=== PATIENT | male | born 1975 | race Caucasian/White ===

== ENCOUNTER → 2018-07-21 12:24 | Outpatient (CLI) | payer MEDICAID, OTHER, SELFPAY ==
[2016-01-07 09:35] VITALS: BMI 29.2
--- NOTE | 2018-07-21 12:33 | RAD_ITS ---
STUDY: X-RAY - CERVICAL SPINE REASON FOR EXAM: Male, 43 years old. Neck pain with arm numbness TECHNIQUE: 5 view(s) of the cervical spine were obtained. COMPARISON: None FINDINGS: Normal anterior atlantoaxial articulation. Normal odontoid process. Normal cervical lordosis. Normal vertebral bodies and endplates. Normal disc space heights. Normal visualized intervertebral neuroforamina. The soft tissue structures are unremarkable. RAD/Cerv Spine 4 or 5 Views IMPRESSION: Normal x-ray examination of the visualized cervical spine. Electronically Signed: Kyle Jeffries MD at 19:58 EDT Tel , Service support ,
== END ==
PROVIDERS: Family Provider Family Medicine; PCP Family Medicine; Referring Provider Anesthesiology Pain Medicine; Visit Provider Anesthesiology Pain Medicine
DX: M54.2 Cervicalgia (principal)
CPT/HCPCS: 72050

== ENCOUNTER → 2019-08-26 | Outpatient (CLI) | payer MEDICAID, SELFPAY ==
[2016-01-07 09:35] VITALS: BMI 29.2
--- NOTE | 2019-08-26 12:34 | RAD_ITS ---
STUDY: X-RAY - RIGHT ELBOW REASON FOR EXAM: Male, 44 years old. PAIN TECHNIQUE: 3 view(s) of the elbow. COMPARISON: None. FINDINGS: Normal visualized humerus, radius and ulna. Normal radiocapitellar and ulnotrochlear articulations. The soft tissue structures are unremarkable. RAD/Elbow min 3 Views IMPRESSION: Normal x-ray examination of the elbow. Electronically Signed: Adán Lynne, at 14:49 EDT , Service support ,
== END | disposition home or self-care (01) ==
LOC: HPRAD 12:29
PROVIDERS: PCP Family Medicine; Referring Provider Anesthesiology Pain Medicine; Visit Provider Anesthesiology Pain Medicine
DX: M25.521 Pain in right elbow (principal)
CPT/HCPCS: 73080

== ENCOUNTER 2024-09-10 12:08 | Emergency (ER) | payer OTHER, SELFPAY ==
[2024-09-10 12:08] VITALS: BP 148/96; PULSE 98; RESP 14; TEMP 36.2; O2SAT 99; BMI 28.6
--- NOTE | 2024-09-10 12:16 | CT_ITS ---
PROCEDURE: ABDOMEN/PELVIS WITHOUT CONT 09/10/2024 REASON FOR EXAM: KIDNEY STONE TECHNIQUE: ABDOMEN/PELVIS WITHOUT CONT Noncontrast technique limits evaluation of the abdominal and pelvic viscera. Coronal and Sagittal reconstruction series were provided. One or more dose reduction techniques were used (e.g., Automated exposure control, adjustment of the mA and/or kV according to patient size, use of iterative reconstruction technique). FINDINGS: Lung bases: Lung bases are unremarkable The liver, gallbladder, spleen, pancreas and right kidney unremarkable 12 mm right adrenal nodule 4.4 cm left adrenal mass is seen. The right kidney in the left kidney demonstrate no hydroureteronephrosis there is mild fat stranding around the left adrenal mass which appears unrelated to left renal pathology. Bladder: Urinary bladder is unremarkable. Reproductive Organs: Unremarkable Bowel: Normal caliber and appearance. Appendix: No inflammatory process in the right lower quadrant. Lymph nodes: No pathologic Vasculature: 0 normal caliber. Very low plaque burden Peritoneum / Retroperitoneum: No ascites. Bones: No aggressive bone lesion CT/Abdomen/Pelvis without Cont IMPRESSION: Suspicious left adrenal mass and possibly small. MRI abdomen with inphase and out of phase imaging could provide more information about the adrenal lesions Reading [facility]
--- NOTE | 2024-09-10 12:17 | EDS_ITS ---
HPI History of Present Illness Chief Complaint: Flank Pain Informant: patient and spouse/S.O. Narrative Narrative: Nontraumatic left side abdomen pain midnight rating to his flank. Pain would come and go. Nausea and vomiting no hematemesis. No urinary symptoms. No history of kidney stones. Appendectomy in the past. He took Tylenol and Lisa aspirin this morning no relief. States he takes this for his chronic back pain also. No back surgeries. Denies fever chills or sweats. Denies history of gastric ulcers or kidney injury. Normal bowel movements no black or bloody stools. Prior similar symptoms: No PFSH PFSH Medical History (Updated 09/10/24 @ 16:[address] Brody Villa DO) Back pain Home Medications ?Medication ?Instructions ?Recorded ?Last Taken ?Type acetaminophen 500 mg capsule 1,000 mg PO Q6H PRN pain 09/10/24 09/10/24 History aspirin-caffeine 500 mg-32.5 mg 1 tab PO PRN 09/10/24 09/10/24 History tablet (Back and Body Pain Reliever) oxycodone-acetaminophen 5 mg-325 1 tab PO Q6H PRN PRN Pain 3 days 09/10/24 Unknown Rx mg tablet #12 TABLETS Allergy/AdvReac Type Severity Reaction Status Date / Time Penicillins Allergy Unknown Verified 09/10/24 12:09 Surgical History (Updated 09/10/24 @ 12:28 by Siria Kam) History of appendectomy Social History Smoking Status: Current every day smoker tobacco type: cigarettes ROS ROS ED Constitutional Constitutional ED: Denies chills, fever(s) or sweats ENT ENT ED: Denies sore throat Cardiovascular Cardiovascular: Denies chest pain, leg edema, palpitations or racing heartbeat Respiratory/Chest Respiratory/Chest: Denies cough, dyspnea or dyspnea on exertion Gastrointestinal Gastrointestinal: Reports abdominal pain, nausea and vomiting; Denies diarrhea Genitourinary Genitourinary ED: Denies dysuria, hematuria or urinary frequency Musculoskeletal Musculoskeletal: Denies back pain, extremity pain or neck pain Integumentary Denies rash or wounds Neurologic Neurologic: Denies headache(s), paresthesias or weakness EXAM Physical Exam Const Vital Signs: 09/10/24 12:08 09/10/24 16:24 09/10/24 16:25 Temperature 97.2 F L 98.3 F Temperature Source Temporal Pulse Rate 98 79 79 Respiratory Rate 14 17 17 Blood Pressure 148/96 H 136/89 H 136/89 H Blood Pressure Mean 113 104 104 Pulse Ox 99 100 100 Oxygen Delivery Method Room Air Room Air Positive well nourished and well developed General Appearance ED: well developed and NAD HEENT Reports moist mucous membranes normocephalic and atraumatic Eyes General Eye ED: Yes normal appearance of both eyes Neck full ROM Chest Wall Chest: Negative for tenderness Resp normal respiratory effort and normal air movement Effort and Inspection: symmetric chest movement; Negative for respiratory distress Cardio regular rate, regular rhythm and no murmurs Peripheral Pulses: pulses 2+ throughout GI normal to inspection, nondistended, normoactive bowel sounds GI Narrative: Mild tenderness left side abdomen mid axillary area no rash no CVA tenderness. No guarding or rebound. Palpation: Negative for guarding or rebound tenderness present Extremity normal to inspection General Extremety ED: Negative for edema or tenderness General Extremity: Negative for edema Neuro oriented x3 and no sensory deficits noted Sensorium / Orientation: awake and alert Skin no rashes or lesions noted and no wounds MDM MDM MDM Narrative Medical decision making narrative: Interventions / MDM: Differential diagnosis: Left flank pain, left adrenal mass Diagnosis considered but do not suspect: Kidney stone however workup negative. Colitis however CT negative. My EKG interpretation: N/A Imaging independently reviewed and interpreted by myself: CT abdomen pelvis: 4.4 cm left adrenal mass, 12 mm right adrenal nodule, no renal stones noted. External documents reviewed: N/A Test considered but not ordered:N/A ED course: Patient presented renal colic symptoms pain causing nausea and vomiting. Left side pain rating to his back. Renal stone protocol initiated. IV established for labs, urine ordered. Fluids, Zofran, Toradol, morphine. CT abdomen pelvis for further evaluation. 1510: Pain more controlled this time on workup and white count 17. Urine negative for infection. Normal creatinine 0.88. Lipase LFTs normal. CT scan without kidney stones or obstructive process. However incidentally notes a 4.4 cm left adrenal mass, 12 mm right adrenal nodule. No cancer history. No inspected weight loss. This mass is on the left side likely explaining patient's pain. He is followed by Dr. Osborn in the past, I will reach out to discuss close outpatient follow-up for further outpatient workup. Reach out to transfer line with nursing service. He has not seen his PCP in over 3 years. They discussed with the patient his insurance is not in network. Therefore he is given information to follow-up with [facility] to call on Thursday. He is given a short prescription for pain control. All questions were answered. Re-evaluation: stable Disposition discussed with patient/family/significant other: Patient and significant other Case discussed with consulting clinician: N/A This note was generated with [employer] dictation software. It may contain incorrect words, spelling, and punctuation that were not noted in checking the note before signing. Lab Data Attestation: I reviewed the patient's lab results. Labs: Laboratory Results - last 24 hr 09/10/24 09/10/24 12:22 14:30 WBC 17.7 H RBC 5.53 Hgb 16.0 Hct 46.0 MCV 83.2 MCH 28.9 MCHC 34.8 RDW Std Deviation 42.5 RDW Coeff of Shahbaz 13.8 Plt Count 369 MPV 8.5 Immature Gran % (Auto) 0.700 Neut % (Auto) 80.6 H Lymph % (Auto) 12.7 L Swisher % (Auto) 5.7 Eos % (Auto) 0.0 Baso % (Auto) 0.3 Absolute Neuts (auto) 14.2 H Absolute Lymphs (auto) 2.25 Nucleated RBC % 0 Sodium 137 Potassium 3.9 Chloride 99 Carbon Dioxide 24.0 Anion Gap 14 BUN 16 Creatinine 0.88 Estim Creat Clear Calc 111.54 Est GFR (MDRD) Non-Af 106 BUN/Creatinine Ratio 18.2 Glucose 132 H Calcium 9.8 Total Bilirubin 0.75 Direct Bilirubin 0.21 AST 21 ALT 23 Alkaline Phosphatase 80 Total Protein 8.0 Albumin 4.6 Globulin 3.4 Lipase 21 Urine Color Yellow Urine Clarity Clear Urine pH 6.0 Ur Specific [place] 1.020 Urine Protein 30 H Urine Glucose (UA) Normal Urine Ketones Negative Urine Occult Blood 25 H Urine Nitrite Negative Urine Bilirubin Negative Urine Urobilinogen Normal Ur Leukocyte Esterase Negative Urine RBC 0-5 SEEN Urine WBC 0 SEEN Ur Squamous Epith Cells 0 SEEN Urine Bacteria 0 SEEN Urine Mucus 0 SEEN Radiography Diagnostic Testing: Clinical Impression(s) from Imaging Studies Abdomen/Pelvis CT 06/21/25 12:16 IMPRESSION: Suspicious left adrenal mass and possibly small. MRI abdomen with inphase and out of phase imaging could provide more information about the adrenal lesions Reading [facility] Discharge Plan Triage Chief Complaint: Flank Pain ED Provider: Brody Villa Dx/Rx/DC Orders Clinical Impression: Adrenal mass, left, Left flank pain Instructions: ED Flank Pain, Uncertain Cause Prescriptions: New oxycodone-acetaminophen 5-325 mg tablet 1 tab PO Q6H PRN PRN (Reason: Pain) 3 Days Qty: 12 0RF No Action acetaminophen 500 mg capsule 1,000 mg PO Q6H PRN (Reason: pain) Back and Body Pain Reliever 500-32.5 mg tablet 1 tab PO PRN Primary Care Provider: Care Physician,No Primary Referrals: Torsten Osborn MD [Non-Staff] - Arin Roa [facility], DO [[facility]] - 2 Days Activity Restrictions/Additional Instructions: Your workup negative for kidney stones however notes a 4.4 cm left adrenal mass. This likely explaining your pain. Attempted to reach out to [facility], unfortunately currently your insurance is not accepted through them. Please call we will start from clinic on Thursday for outpatient follow-up and further testing as needed. Take pain medicines as needed. Print Language: Azeri Disposition Disposition: Home, Self Care Discharge Date/Time: 09/10/24 16:25
[2024-09-10] MEDS: Ondansetron 4 MG/2 ML Vial IV (12:24)
[2024-09-10] MEDS: Ketorolac 15 MG/ML Vial IV (12:24)
[2024-09-10] MEDS: 0.9% Normal Saline (1000mL) 1,000 ML 999 ML IV (12:24)
[2024-09-10] MEDS: Morphine 4 MG/ML Syringe IV (12:25)
[2024-09-10 12:31] LABS: Absolute Lymphocyte Count 2.25 X10^3/uL (0.83-4.51); Absolute Neutrophil Count 14.2 X10^3/uL (2.0-7.7); Basophil# 0.06 X10^3/uL; Basophil% 0.3 % (0-1); Lymphocyte # 2.25 X10^3/ul (0.83-4.51); Lymphocyte % 12.7 % (19-41); Mean Corp Hgb Conc 34.8 g/dL (32-36); Mean Corpuscular Hgb 28.9 pg (27.0-32.0); Mean Corpuscular Volume 83.2 fL (80-94); Mean Platelet Vol. 8.5 fl (6.2-12.0); Monocyte# 1.01 X10^3/uL; Monocyte% 5.7 % (0-10); NRBC Flagged by Analyzer 0 % (0-5); Neutrophil # 14.23 X10^3/uL (2.7-7.7); Neutrophil % 80.6 % (47-70); Platelet Count 369 K/mm3 (150-450); RBC Distribution Width CV 13.8 % (11.6-14.6); RBC Distribution Width SD 42.5 fl (35.1-43.9); Red Blood Count 5.53 M/mm3 (4.6-6.2); White Blood Count 17.7 K/mm3 (4.4-11.0)
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
[2024-09-10 12:50] LABS: Anion Gap 14 (5-15); BUN 16 mg/dL (4-19); BUN/Creat Ratio 18.2 RATIO (10-20); Calcium,Total 9.8 mg/dL (7.6-11.0); Chloride 99 mmol/L (98-108); Creatinine, Serum 0.88 mg/dL (0.70-1.20); EST Glomerular Filtration Rate 106 (>60); Estimated Creatinine Clearance 111.54 ml/min (50-250); Glucose 132 mg/dL (70-99); Potassium 3.9 mmol/L (3.3-5.1); Sodium Level 137 mmol/L (133-145)
[2024-09-10 13:41] LABS: AST(SGOT) 21 U/L (<=37); Alanine Aminotransfer ALT/SGPT 23 U/L (<=46); Albumin, Serum 4.6 g/dL (3.5-5.0); Alkaline Phosphatase 80 U/L (40-129); Bilirubin, Direct 0.21 mg/dL (0.00-0.30); Globulin 3.4 g/dL (2.2-4.2); Lipase 21 U/L (13-75); Total Bilirubin 0.75 mg/dL (0.00-1.30)
[2024-09-10 14:44] LABS: Bacteria 0 SEEN /hpf (None Seen); Mucous, Urine 0 SEEN /hpf (<or=2+); Squamous Epithelial Cells - UA 0 SEEN /hpf (0-5)
[2024-09-10 14:46] LABS: Color, Urine Yellow (Yellow); Glucose, Dipstick Normal (Normal); Ketone-Dipstick Negative (Negative); Leukocyte Esterase-Dipstick Negative /ul (Negative); Nitrite-Dipstick Negative (Negative); Occult Blood-Urine 25 /ul (Negative); Protein-Dipstick 30 mg/dl (Negative); Urine Bilirubin Dipstick Negative (Negative); Urine Clarity Clear (Clear); Urine Urobilinogen Normal (Normal)
[2024-09-10 14:52] LABS: Red Blood Cells-Urine 0-5 SEEN /hpf (0-5)
[2024-09-10 14:53] LABS: White Blood Cells 0 SEEN /hpf (0-5)
[2024-09-10 16:24] VITALS: BP 136/89; PULSE 79; RESP 17; O2SAT 100
[2024-09-10 16:25] VITALS: BP 136/89; PULSE 79; RESP 17; TEMP 36.8; O2SAT 100
== END 2024-09-10 16:25 | disposition home or self-care (01) ==
PROVIDERS: Emergency Provider Emergency Medicine; Visit Provider Emergency Medicine
DX: E27.8 Other specified disorders of adrenal gland (principal); G89.29 Other chronic pain; M54.9 Dorsalgia, unspecified; Z90.49 Acquired absence of other specified parts of digestive tract; Z79.82 Long term (current) use of aspirin; F17.210 Nicotine dependence, cigarettes, uncomplicated
CPT/HCPCS: 74176; 80048; 80076; 81001; 83690; 85025; 96361; 96374; 96375; 99283; A4216; J2405

== ENCOUNTER → 2024-09-30 | Outpatient (CLI) | payer OTHER, SELFPAY ==
--- NOTE | 2024-09-30 07:57 | MRI_ITS ---
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 IV contrast: 10 mL Clariscan COMPARISON: 09/10/2024 FINDINGS: Variable overall very mild motion limitation. Note some abdominal viscera are excluded from the field of view as the exam was optimized for evaluation of the adrenals. Diffusion was not performed. Lung bases: 15 x 12 mm LEFT lower lobe nodule. Liver: Punctate subcapsular probable cyst in the anterior RIGHT lobe. Extremely faintly T2 bright and T1 isointense lesion in the central inferior RIGHT lobe measures 26 x 29 mm demonstrates homogeneous arterial phase hyperenhancement, fading to background signal intensity on more delayed postcontrast imaging. Spleen: Unremarkable. Gallbladder: Suspect adenomyosis along the fundus with nodular area of soft tissue thickening and cystic changes measuring 13 x 11 mm.. Pancreas: Unremarkable. Adrenals: Heterogeneously T1 and T2 bright LEFT renal mass measures 4.1 x 3.9 x 4.1 cm and appears centrally mostly centrally nonenhancing however with areas of peripheral wall thickening and suspected hypoenhancement up to 10 mm on subtraction imaging although there is some limitation related to motion. No definite macroscopic or intracellular fat identified. Mild surrounding stranding is nonspecific and may be related to hemorrhage. Kidneys: Trace nonspecific symmetric perinephric stranding. Bowel: Not well evaluated by MRI; better evaluated previously. No gross bowel dilatation. Diverticulosis. Lymph nodes: Unremarkable. Vasculature: Mild atherosclerosis. Peritoneum: Unremarkable. Bones: Grossly unremarkable on nondedicated evaluation. MRI/MRI Abd WITH and W/O Contrast IMPRESSION: 1. 4.1 cm hemorrhagic LEFT adrenal mass remains indeterminate by MRI and theref ore warrants clinical follow-up such as PET/CT or tissue sampling. Note that the majority of the lesion centrally appears nonenh ancing, likely reflecting blood products. Tissue sampling thus carries a risk of false negative/nondiagnostic results and should target peripheral elements to minimize this possibility, if performed. Correlation with medical history and any available more remote outside imaging may also be helpful. Mild surrounding stranding is nonspecific and may be reactive to hemorrhage. 2. Indeterminate 15 mm pulmonary nodule not well evaluated by MRI. This warran follow-up CT chest in 3 months, PET-CT, or tissue sampling per the Fleischner recommendations for pulmonary nodule follow- up, presuming no history of known malignancy or immunosuppression. Additionally recommend more prompt CT chest to better estab xavi a baseline and evaluate for possible additional nodules. 3. 29 mm hypervascular hepatic lesion is suboptimally characterized given the p rotocol is optimized for evaluation of the adrenals but may reflect FNH. Recommend either close attention on follow-up im aging to ensure stability versus more definitive characterization with multiphase hepatic protocol MRI with Eovist IV contrast. 4. Suspect 13 mm nodular appearance of adenomyosis along the gallbladder fundus . Recommend confirmation with ultrasound as this has a pathognomonic sonographic appearance. 5. Additional description as above. Reading Location: [id number]
== END | disposition home or self-care (01) ==
LOC: MRI 07:54
DX: D44.10 Neoplasm of uncertain behavior of unspecified adrenal gland (principal)
CPT/HCPCS: 74183; A9575; A4216

== ENCOUNTER → 2024-10-07 | Outpatient (CLI) | payer OTHER, SELFPAY ==
[2024-10-07 10:45] LABS: Hematocrit 41.5 % (40-54); Hemoglobin 14.3 g/dL (13.0-16.5); Mean Corp Hgb Conc 34.5 g/dL (32-36); Mean Corpuscular Volume 84.3 fL (80-94); Mean Platelet Vol. 8.7 fl (6.2-12.0); Platelet Count 290 K/mm3 (150-450); RBC Distribution Width CV 13.6 % (11.6-14.6); RBC Distribution Width SD 42.2 fl (35.1-43.9); Red Blood Count 4.92 M/mm3 (4.6-6.2); White Blood Count 10.0 K/mm3 (4.4-11.0)
[2024-10-07 10:58] LABS: Color, Urine Yellow (Yellow); Glucose, Dipstick Normal (Normal); Ketone-Dipstick Negative (Negative); Leukocyte Esterase-Dipstick Negative /ul (Negative); Nitrite-Dipstick Negative (Negative); Occult Blood-Urine Negative /ul (Negative); Protein-Dipstick 15 mg/dl (Negative); Specific Gravity, Urine 1.020 (1.002-1.030); Urine Bilirubin Dipstick Negative (Negative)
[2024-10-07 11:25] LABS: AST(SGOT) 17 U/L (<=37); Alanine Aminotransfer ALT/SGPT 23 U/L (<=46); Albumin, Serum 4.3 g/dL (3.5-5.0); Alkaline Phosphatase 71 U/L (40-129); Anion Gap 10 (5-15); BUN 19 mg/dL (4-19); BUN/Creat Ratio 18.3 RATIO (10-20); Calcium,Total 9.4 mg/dL (7.6-11.0); Carbon Dioxide 24.4 mmol/L (21.0-32.0); Chloride 104 mmol/L (98-108); Globulin 2.7 g/dL (2.2-4.2); Glucose 103 mg/dL (70-99); Potassium 4.2 mmol/L (3.3-5.1)
== END | disposition home or self-care (01) ==
LOC: LAB 10:01
DX: Z13.1 Encounter for screening for diabetes mellitus (principal); R10.9 Unspecified abdominal pain
CPT/HCPCS: 36415; 80053; 81002; 83036; 85027

== ENCOUNTER → 2024-11-05 | Outpatient (CLI) | payer OTHER, SELFPAY ==
--- NOTE | 2024-11-05 10:25 | US_ITS ---
PROCEDURE: ABDOMEN LIMITED 11/05/2024 REASON FOR EXAM: GALLBLADDER DISEASE TECHNIQUE: ABDOMEN LIMITED COMPARISON: 09/30/2024 MRI was reviewed FINDINGS: Liver is mildly enlarged and measures 17.2 cm. It shows normal echogenicity. On the current study no definite focal lesions. Normal bile ducts. Normal color flow. Portal vein is patent with hepatopetal flow. Gallbladder measures 8.1 cm. No definite stones. Negative Martini's sign. No pericholecystic fluid. No obvious wall thickening. Wall measures 2 mm. CBD measures 3 mm. The pancreas is heterogenous. No definite lesions. Right kidney measures 11.3 x 5.9 x 5.4 cm. Cortex measures 1.4 cm. No hydronephrosis. No stones. No mass. 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 No obvious abnormalities on the current study. Further evaluation is advised a s clinically warranted Reading Location[facility] [address]
--- OUTSIDE RECORDS SUMMARY | 2024-11-05 10:37 | XMS RPT_ITS | CCD ---
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 Brody Villa DO Emergency Provider Care Physician, No Primary Primary Care Provider Unavailable Unavailable Primary Care Provider Unavailabl e Beam PATROL GUARD, Zebulun Unavailable Dr. Brody Villa DO Attending Provider [phone] Beam PATROL GUARD-C, Zebulun Primary Care Provider Beam PATROL GUARD-C, Zebulun Attending Provider Beam PATROL GUARD-C, Zebulun Referring Provider Brody Villa Attending Unavailable Care Physician, No Primary Primary Care Unava ilable Beam VSC, Zebulun Primary Care Unavailable Jacquelyn Hightower Attending Unavailable Jacquelyn Hightower Referring Unavailable Beam VSC, Zebulun Primary Care Unavailable Jacquelyn Hightower Attending Unavailable Geronimohohui Jacquelyn Referring Unavailable Beam VSC, Zebulun Primary Care Unavailable Beam VSC, Zebulun Attending Unavailable Beam VSC, Zebulun Referring Unavailable Beam VSC, Zebulun Primary Care Unavailable Beam VSC, Zebulun Attending Unavailable Allergies Allergy Classification Reported Allergen(s) Allergy Type Date of Onset Reaction(s) Facility (3 sources) Penicillins Allergy to substance 5 Unknown [facility] (2 sources) Aspirin Drug Allergy 3 Other: See Comments [facility] (2 sources) Penicillins Propensity to adverse reactions to drug 3 Other: See Comments [facility] (2 sources) SUMAtriptan Drug Allergy 4 GI Upset [facility] (1 source) Penicillins Drug allergy (disorder) 5 [facility] Repository Medications Current Medications Medication Drug Class(es) Dates Sig (Normalized) Sig (Original) acetaminophen 500 mg oral capsule (3 sources) Start: 09-10-2024 take 2 capsules by mouth every six hours as needed for pain Acetaminophen 500 mg capsule Active 1000 mg PO EVERY 6 HOURS as needed for pain September 10, 2024 12:00am acetaminophen 325 mg / oxyCODONE hydrochloride 5 mg oral tablet (3 sources) Opioid Agonist Start: 09-10-2024 take 1 tablet by mouth every six hours as needed for pain Oxycodone-Acetamino phen 5-325 mg tablet Active 1 {tbl} PO EVERY 6 HOURS NEEDED as needed for Pain 12 3 0 September 10, 2024 Mass of left adrenal gland Other specified disorders of adrenal gland aspirin 500 mg / caffeine 32.5 mg oral tablet (3 sources) Platelet Aggregation Inhibitor, Nonsteroidal Anti-inflammatory Drug, Central Nervous System Stimulant, Methylxanthine Start: 09-10-2024 Aspirin-Caffeine (Back And Body Pain Reliever) 500-32.5 mg tablet Active 1 {tbl} PO NEEDED September 10, 2024 12:00am cyclobenzaprine hydrochloride 10 mg oral tablet (5 sources) Muscle Relaxant Start: 11-18-2016 take 1 tablet by mouth every eight hours as needed cyclobenzaprine (FLEXERIL) 10 mg tablet Take 1 tablet by mouth three times daily as needed for Muscle Spasm. 0 11/18/2016 Active Start: 01-03-2016 End: 09-10-2024 take 1 tablet by mouth twice daily as needed for muscle spasms Cyclobenzaprine 10 MG tablet Discontinued 10 mg PO TWICE DAILY NEEDED as needed for Spasms January 03, 2016 12:00am September 10, 2024 12:29pm gabapentin 600 mg oral tablet (2 sources) Anti-epileptic Agent take 1 tablet by mouth three times daily gabapentin (NEURONTIN) 600 mg tablet Take 600 mg by mouth three times daily. Active meloxicam 15 mg oral tablet (2 sources) Nonsteroidal Anti-inflammatory Drug Start: 10-19-19 take 1 tablet by mouth once daily at mealtime meloxicam (MOBIC) 15 mg tablet Indications: Headache, unspecified headache type , Neck pain Take 1 tablet by mouth once daily. With food. 30 tablet 10/18/2020 Active tiZANidine 4 mg oral tablet (2 sources) Central alpha-2 Adrenergic Agonist Start: 10-19-19 take 1 tablet by mouth three times daily as needed for muscle spasms tiZANidine (ZANAFLEX) 4 mg tablet Indications: Headache, unspecified headache type , Neck pain Take 1 tablet by mouth three times daily as needed (muscle spasms). 30 tablet 1 10/18/2020 Active Completed/Discontinued Medications Medication Drug Class(es) Dates Sig (Normalized) Sig (Original) aspirin 500 mg / diphenhydrAMINE citrate 38.3 mg oral tablet (3 sources) Platelet Aggregation Inhibitor, Histamine-1 Receptor Antagonist, Nonsteroidal Anti-inflammatory Drug Start: 01-03-2016 End: 09-10-2024 take 1 tablet by mouth three times daily in the evening Aspirin-Diphenhyd ramine Citrat (Lisa Pm Caplet) 1 EACH tablet Discontinued 500 NMA PO THREE TIMES A DAY January 03, 2016 12:00am September 10, 2024 12:30pm etodolac 300 mg oral capsule (3 sources) Nonsteroidal Anti-inflammatory Drug Start: 11-07-2014 End: 09-10-2024 take 1 capsule by mouth three times daily at mealtime Etodolac 300 MG capsule Discontinued 300 mg PO 3 TIMES DAILY WITH MEALS 30 0 November 07, 2014 12:00am September 10, 2024 12:29pm with food omeprazole 40 mg delayed release oral capsule (3 sources) Proton Pump Inhibitor Start: 01-03-2016 End: 09-10-2024 Omeprazole (Prilosec) 40 MG capsule Discontinued 40 mg PO NEEDED as needed for Indigestion January 03, 2016 12:00am September 10, 2024 12:29pm Problems Active Problems Problem Classification Problem Date Documented Da te Episodic/Chronic Abdominal pain (4 sources) Left flank pain; Translations: [Unspecified abdominal pain] Onset: 5 09-10-2024 Episodic Biliary tract disease (1 source) Other specified diseases of gallbladder; Translations: [Other specified diseases of gallbladder] Onset: 5 Episodic Diseases of white blood cells (2 sources) Leukocytosis; Translations: [Elevated white blood cell count, unspecified] Onset: 7 11-24-2016 Chronic Disorders of lipid metabolism (2 sources) Mixed hyperlipidemia; Translations: [Mixed hyperlipidemia] Onset: 7 09-08-2016 Chronic Esophageal disorders (2 sources) Gastroesophageal reflux disease without esophagitis; Translations: [Gastro-esophageal reflux disease without esophagitis] Onset: 7 11-18-2016 Chronic Essential hypertension (2 sources) Essential hypertension; Translations: [Essential (primary) hypertension] Onset: 7 11-18-2016 Chronic Headache; including migraine (2 sources) Migraine; Translations: [Migraine, unspecified, not intractable, without status migrainosus] 07-28-2014 Chronic Neoplasms of unspecified nature or uncertain behavior (1 source) 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; Translations: [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] Onset: 5 Episodic Osteoarthritis (2 sources) Arthritis of hip; Translations: [Unilateral primary osteoarthritis, unspecified hip] Onset: 5 02-23-2017 Chronic Other endocrine disorders (4 sources) Adrenal mass; Translations: [Other specified disorders of adrenal gland] 09-10-2024 Chronic Other gastrointestinal disorders (1 source) Adrenal mass 09-22-2024 Episodic Other lower respiratory disease (1 source) Solitary pulmonary nodule; Translations: [Solitary pulmonary nodule] Onset: 5 Episodic Other nervous system disorders (2 sources) Chronic pain syndrome; Translations: [Chronic pain syndrome] Onset: 8 04-02-2017 Chronic Other screening for suspected conditions (not mental disorders or infectious disease) (1 source) Encounter for screening for diabetes mellitus; Translations: [Encounter for screening for diabetes mellitus] Onset: 5 Episodic Spondylosis; intervertebral disc disorders; other back problems (2 sources) Prolapsed lumbar intervertebral disc; Translations: [Other intervertebral disc displacement, lumbar region] Onset: 5 11-18-2016 Chronic Substance-related disorders (2 sources) Cigarette smoker ; Translations: [Nicotine dependence, cigarettes, uncomplicated] Onset: 5 11-18-2016 Chronic Past or Other Problems Problem Classification Problem Date Documented Date Episodic/Chronic Headache; including migraine (2 sources) Headache; Translations: [Headache, unspecified headache type] Onset: 11-07-2020 11-07-2020 Episodic Other acquired deformities (2 sources) Other specified acquired deformities of right thigh; Translations: [Other acquired deformities of hip] Onset: 07-28-2014 02-23-2017 Episodic Other aftercare (2 sources) Drug therapy finding; Translations: [Other snf (current) drug therapy] Onset: 11-18-2016 11-18-2016 Episodic Other connective tissue disease (2 sources) Muscle weakness of limb; Translations: [Other symptoms and signs involving the musculoskeletal system] Onset: 11-30-2014 11-30-2014 Episodic Other nervous system disorders (2 sources) Abnormal reflex; Translations: [Abnormal reflex] Onset: 11-30-2014 11-30-2014 Episodic Other non-traumatic joint disorders (2 sources) Arthralgia of the pelvic region and thigh; Translations: [Pain in unspecified hip] Onset: 09-04-2014 09-04-2014 Episodic Spondylosis; intervertebral disc disorders; other back problems (6 sources) Low back pain; Translations: [Lumbago] Onset: 09-04-2014 02-23-2017 Episodic Results Test Name Value Interpretation Reference Range Facility Anion gap in Serum or Plasma Ordered By: Carolyn Phelps on 10-07-2024 Anion gap [Moles/Vol] 10 mmol/L 08-04 [facility] BUN/creatinine ratioOrdered By: yumiko Phelps on 10-07-2024 Urea nitrogen/Creatinine [Mass ratio] 18.3 mg/mg 01-09 [facility] Bilirubin Test strip Ql (U)O rdered By: Carolyn Phelps on 10-07-2024 Bilirubin Ql (U) Negative Negative [facility] Bilirubin, totalOrdered By: [facility] on 10-07-2024 Bilirubin [Mass/Vol] 0.59 mg/dL 0.00-1.30 [facility] CBC-Complete Blood Cnt No Di ffon 10-07-2024 Erythrocyte distribution width (RBC) [Ratio] 13.6 % Normal 11.6-14.6 [facility] Comment on above: Performed By: #### L [id number], L100.0500, L400.2010, L500.4050 #### [facility] [address] [place], [address] Hematocrit (Bld) [Volume fraction] 41.5 % Normal 40-54 [facility] Comment on above: Performed By: #### L [id number], L100.0500, L4, L500.4050 #### [facility] [address] [place], [address] Hemoglobin (Bld) [Mass/Vol] 14.3 g/dL Normal 13.0-16.5 [facility] Comment on above: Performed By: #### L [id number], L100.0500, L4, L500.4050 #### [facility] [address] [place], [address] MCH (RBC) [Entitic mass] 29.1 pg Normal 27.0-32.0 [facility] Comment on above: Performed By: #### L [id number], L100.0500, L4, L500.4050 #### [facility] [address] [place], [address] MCHC (RBC) [Mass/Vol] 34.5 g/dL Normal 32-36 [facility] Comment on above: Performed By: #### L [id number], L100.0500, L4, L500.4050 #### [facility] [address] [place], [address] MCV (RBC) [Entitic vol] 84.3 fL Normal 80-94 [facility] Comment on above: Performed By: #### L [id number], L100.0500, L4, L500.4050 #### [facility] [address] [place], [address] Platelet mean volume (Bld) [Entitic vol] 8.7 fL Normal 6.2-12.0 [facility] Comment on above: Performed By: #### L [id number], L100.0500, L4, L500.4050 #### [facility] [address] [place], [address] Platelets (Bld) [#/Vol] 290 10*3/uL Normal 150-450 [facility] Comment on above: Performed By: #### L [id number], L100.0500, L400.2010, L500.4050 #### [facility] [address] [place], [address] RBC (Bld) [#/Vol] 4.92 10*6/uL Normal 4.6-6.2 [facility] Comment on above: Performed By: #### L [id number], L100.0500, L400.2010, L500.4050 #### [facility] [address] [place], [address] RDW SD 42.2 fl Normal 35.1-43.9 [facility] Comment on above: Performed By: #### L [id number], L100.0500, L4.2010, L500.4050 #### [facility] [address] [place], [address] WBC (Bld) [#/Vol] 10.0 10*3/uL Normal 4.4-11.0 [facility] Comment on above: Performed By: #### L [id number], L100.0500, L400.2010, L500.4050 #### [facility] [address] [place], [address] Carbon dioxide, total [Moles /volume] in Central venous bloodOrdered By: Carolyn Phelps on 10-07-2024 CO2 [Moles/Vol] 24.4 mmol/L 21.0-32.0 [facility] Chloride assayOrdered By: Truong Phelps on 10-07-2024 Chloride [Moles/Vol] 104 mmol/L 98-108 [facility] Comprehensive Metabolic Prof ilon 10-07-2024 Albumin [Mass/Vol] 4.3 g/dL Normal 3.5-5.0 [facility] Comment on above: Performed By: #### L 100.0100, L500.2500 #### [facility] [address] [place], [address] Albumin/Globulin [Mass ratio] 1.6 {ratio} Normal 0.9-2.4 [facility] Comment on above: Performed By: #### L 100.0100, L500.2500 #### [facility] [address] [place], [address] ALK PHOS 71 U/L Normal 40-129 [facility] Comment on above: Performed By: #### L 100.0100, L500.2500 #### [facility] [address] [place], [address] ALT [Catalytic activity/Vol] 23 U/L Normal <=46 [facility] Comment on above: Performed By: #### L 100.0100, L500.2500 #### [facility] [address] [place], [address] AST [Catalytic activity/Vol] 17 U/L Normal <=37 [facility] Comment on above: Performed By: #### L 100.0100, L500.2500 #### [facility] [address] [place], [address] Bilirubin [Mass/Vol] 0.59 mg/dL Normal 0.00-1.30 [facility] Comment on above: Performed By: #### L 100.0100, L500.2500 #### [facility] [address] [place], [address] BUN/CRE 18.3 RATIO Normal 10-20 [facility] Comment on above: Performed By: #### L 100.0100, L500.2500 #### [facility] [address] [place], [address] Calcium [Mass/Vol] 9.4 mg/dL Normal 7.6-11.0 [facility] Comment on above: Performed By: #### L 100.0100, L500.2500 #### [facility] [address] [place], [address] Chloride [Moles/Vol] 104 mmol/L Normal 98-108 [facility] Comment on above: Performed By: #### L 100.0100, L500.2500 #### [facility] [address] [place], [address] CO2 [Moles/Vol] 24.4 mmol/L Normal 21.0-32.0 [facility] Comment on above: Performed By: #### L 100.0100, L500.2500 #### [facility] [address] [place], [address] Creatinine [Mass/Vol] 1.03 mg/dL Normal 0.70-1.20 [facility] Comment on above: Performed By: #### L 100.0100, L500.2500 #### [facility] [address] [place], [address] GAP 10 Normal 5-15 [facility] Comment on above: Performed By: #### L 100.0100, L500.2500 #### [facility] [address] [place], [address] GFR/1.73 sq M.predicted among non-blacks MDRD (S/P/Bld) [Vol rate/Area] 89 mL/min/{1.73_m2} Normal >60 [facility] Comment on above: Result Comment: mL/m in/1.73m2 CKD-EPI Creatinine Equation (2020) Performed By: #### L 100.0100, L500.2500 #### [facility] [address] [place], [address] Globulin (S) [Mass/Vol] 2.7 g/dL Normal 2.2-4.2 [facility] Comment on above: Performed By: #### L 100.0100, L500.2500 #### [facility] [address] [place], [address] Glucose [Mass/Vol] 103 mg/dL High 70-99 [facility] Comment on above: Performed By: #### L 100.0100, L500.2500 #### [facility] [address] [place], [address] Potassium [Moles/Vol] 4.2 mmol/L Normal 3.3-5.1 [facility] Comment on above: Performed By: #### L 100.0100, L500.2500 #### [facility] [address] [place], [address] Sodium [Moles/Vol] 139 mmol/L Normal 133-145 [facility] Comment on above: Performed By: #### L 100.0100, L500.2500 #### [facility] [address] [place], [address] T PROT 7.0 g/dL Normal 5.9-8.4 [facility] Comment on above: Performed By: #### L 100.0100, L500.2500 #### [facility] [address] [place], [address] Urea nitrogen [Mass/Vol] 19 mg/dL Normal 4-19 [facility] Comment on above: Performed By: #### L 100.0100, L500.2500 #### [facility] [address] [place], [address] Erythrocyte distribution wid th ratioOrdered By: Zebulun Beam on 10-07-2024 Erythrocyte distribution width (RBC) [Ratio] 13.6 % 11.6-14.6 [facility] Erythrocyte distribution wid th standard deviationOrdered By: Zebulun Beam on 10-07-2024 Erythrocyte distribution width (RBC) [Ratio] 42.2 fl 35.1-43.9 [facility] Glomerular filtration rate ( GFR) estimation/1.73 sq m using serum, plasma, or whole bOrdered By: Carolyn Phelps on 10-07-2024 GFR/1.73 sq M.predicted among non-blacks MDRD (S/P/Bld) [Vol rate/Area] 89 mL/min/{1.73_m2} >60 [facility] Comment on above: mL/min/1.73m2 CKD-EP I Creatinine Equation (2020) Hematocrit Auto (Bld) [Volum e fraction]Ordered By: Carolyn Phelps on 10-07-2024 Hematocrit (Bld) [Volume fraction] 41.5 % 40-54 [facility] Hemoglobin A1con 10-07-2024 HbA1c (Bld) [Mass fraction] 5.9 % High <=5.6 [facility] Comment on above: Result Comment: Norm al < 5.7 % Prediabetic 5.7 - 6.4 % Diabetic >or= 6.5 % Please note range changes. Performed By: #### L 100.0100, L500.2500 #### [facility] [address] [place], [place] [address]all [facility] [place], [address] Hemoglobin A1c percentageOrd ered By: Carolyn Phelps on 10-07-2024 HbA1c (Bld) [Mass fraction] 5.9 % High <5.7 [facility] Comment on above: Normal < 5.7 % Predi abetic 5.7 - 6.4 % Diabetic >or= 6.5 % Please note range changes. Hemoglobin measurementOrdere d By: Carolyn Phelps on 10-07-2024 Hemoglobin (Bld) [Mass/Vol] 14.3 g/dL 13.0-16.5 [facility] Ketones Test strip Ql (U)Ord ered By: [facility] Phelps on 10-07-2024 Ketones Ql (U) Negative Negative [facility] - Chemistry and C hemistry - challengeOrdered By: Carolyn Phelps on 10-07-2024 AST [Catalytic activity/Vol] 17 U/L <38 [facility] MCV (mean corpuscular volume ) determinationOrdered By: Carolyn Phelps on 10-07-2024 MCV (RBC) [Entitic vol] 84.3 fL 80-94 [facility] Mean corpuscular hemoglobin (MCH) determinationOrdered By: Ricardon Mattie on 10-07-2024 MCH (RBC) [Entitic mass] 29.1 pg 27.0-32.0 [facility] Mean corpuscular hemoglobin concentration (MCHC) determinationOrdered By: Oswaldolun Beam on 10-07-2024 MCHC (RBC) [Mass/Vol] 34.5 g/dL 32-36 [facility] Mean platelet volume determi nationOrdered By: Zeauralun Beam on 10-07-2024 Platelet mean volume (Bld) [Entitic vol] 8.7 fL 6.2-12.0 [facility] Nitrite Test strip Ql (U)Ord ered By: Carolyn Beam on 10-07-2024 Nitrite Ql (U) Negative Negative [facility] Platelet countOrdered By: Truong Phelps on 10-07-2024 Platelets (Bld) [#/Vol] 290 10*3/uL 150-450 [facility] Potassium measurement (mass/ volume)Ordered By: Carolyn Phelps on 10-07-2024 Potassium (Unsp spec) [Mass/Vol] 4.2 mmol/L 3.3-5.1 [facility] Protein Test strip Ql (U)Ord ered By: Carolyn Phelps on 10-07-2024 Protein Ql (U) 15 mg/dl High Negative [facility] RBC Auto (Bld) [#/Vol]Ordere d By: Carolyn Beam on 10-07-2024 RBC (Bld) [#/Vol] 4.92 10*6/uL 4.6-6.2 [facility] Serum creatinine measurement (mass/volume)Ordered By: Carolyn Phelps on 10-07-2024 Creatinine [Mass/Vol] 1.03 mg/dL 0.70-1.20 [facility] Serum globulin measurementOr dered By: Carolyn Phelps on 10-07-2024 Globulin (S) [Mass/Vol] 2.7 g/dL 2.2-4.2 [facility] Serum glucose measurement (m ass/volume)Ordered By: Carolyn Phelps on 10-07-2024 Glucose [Mass/Vol] 103 mg/dL High 70-99 [facility] Serum or plasma alanine nagel otransferase (ALT) measurementOrdered By: Ricardon Beam on 10-07-2024 ALT [Catalytic activity/Vol] 23 U/L <47 [facility] Serum or plasma albumin fatoumata urement (mass/volume)Ordered By: Truongbulun Beam on 10-07-2024 Albumin [Mass/Vol] 4.3 g/dL 3.5-5.0 [facility] Serum or plasma albumin/glob ulin mass ratioOrdered By: Oswaldoluhollie Beam on 10-07-2024 Albumin/Globulin [Mass ratio] 1.6 {ratio} 0.9-2.4 [facility] Serum or plasma alkaline celine sphatase measurementOrdered By: Oswaldoluhollie Beam on 10-07-2024 ALP [Catalytic activity/Vol] 71 U/L 40-129 [facility] Serum or plasma calcium fatoumata urement (mass/volume)Ordered By: Truongbulun Beam on 10-07-2024 Calcium [Mass/Vol] 9.4 mg/dL 7.6-11.0 [facility] Serum or plasma urea nitroge n measurement (mass/volume)Ordered By: Truongbulun Beam on 10-07-2024 Urea nitrogen [Mass/Vol] 19 mg/dL 4-19 [facility] Sodium levelOrdered By: Oswaldo Phelps on 10-07-2024 Sodium [Moles/Vol] 139 mmol/L 133-145 [facility] Total proteinOrdered By: Joe Phelps on 10-07-2024 Protein [Mass/Vol] 7.0 g/dL 5.9-8.4 [facility] Urinalysis, Routine (Dipstic k)on 10-07-2024 BILIRUBIN URINE Negative Normal Negative [facility] Comment on above: Order Comment: Urine , Random Performed By: #### L [id number], L100.0500, L400.2010, L500.4050 #### [facility] [place], [address] Clarity (U) Clear Normal Clear [facility] Comment on above: Order Comment: Urine , Random Performed By: #### L [id number], L100.0500, L400.2010, L500.4050 #### [facility] [address] [place], [address] Color (U) Yellow Normal Yellow [facility] Comment on above: Order Comment: Urine , Random Performed By: #### L [id number], L100.0500, L4.2010, L500.4050 #### [facility] [address] [place], [address] GLUCOSE, UR Normal Normal Normal [facility] Comment on above: Order Comment: Urine , Random Performed By: #### L [id number], L100.0500, L4.2010, L500.4050 #### [facility] [address] [place], [address] KETONE UR Negative Normal Negative [facility] Comment on above: Order Comment: Urine , Random Performed By: #### L [id number], L100.0500, L4.2010, L500.4050 #### [facility] [address] [place], [address] LEUK ESTERASE Negative Normal Negative [facility] Comment on above: Order Comment: Urine , Random Performed By: #### L [id number], L100.0500, L4.2010, L500.4050 #### [facility] [address] [place], [address] Nitrite Ql (U) Negative Normal Negative [facility] Comment on above: Order Comment: Urine , Random Performed By: #### L [id number], L100.0500, L400.2010, L500.4050 #### [facility] [address] [place], [address] OCCULT BLOOD-UR Negative Normal Negative [facility] Comment on above: Order Comment: Urine , Random Performed By: #### L [id number], L100.0500, L400.2010, L500.4050 #### [facility] [address] [place], [address] pH UR 5.0 Normal 5.0 - 8.0 [facility] Comment on above: Order Comment: Urine , Random Performed By: #### L 501.9985, L100.0500, L400.2010, L500.4050 #### [facility] [address] [place], [address] PROT DIPSTX 15 mg/dl Abnormal Negative [facility] Comment on above: Order Comment: Urine , Random Performed By: #### L 501.9985, L100.0500, L400.2010, L500.4050 #### [facility] [address] [place], [address] SP.GR. DIPSTX 1.020 Normal 1.002-1.030 [facility] Comment on above: Order Comment: Urine , Random Performed By: #### L 501.9985, L100.0500, L400.2010, L500.4050 #### [facility] [address] [place], [address] UROBILI Normal Normal Normal [facility] Comment on above: Order Comment: Urine , Random Performed By: #### L 501.9985, L100.0500, L400.2010, L500.4050 #### [facility] [address] [place], [address] Urine clarityOrdered By: Joe Phelps on 10-07-2024 Clarity (U) Clear Clear [facility] Urine color determinationOrd ered By: Carolyn Phelps on 10-07-2024 Color (U) Yellow Yellow [facility] Urine glucose detectionOrder ed By: Carolyn Phelps on 10-07-2024 Glucose Ql (U) Normal mg/dl Normal [facility] Urine leukocyte esterase det ection by dipstickOrdered By: Carolyn Phelps on 10-07-2024 Leukocyte esterase Test strip Ql (U) Negative Negative [facility] Urine pHOrdered By: Carolyn Phelps on 10-07-2024 pH (U) 5.0 [pH] 5.0 - 8.0 [facility] Urine specific gravity measu rementOrdered By: [facility] on 10-07-2024 Specific gravity (U) [Rel density] 1.020 1.002-1.030 [facility] Urine urobilinogen measureme ntOrdered By: aurahollie Phelps on 10-07-2024 Urobilinogen Ql (U) Normal mg/dl Normal [facility] White blood cell (WBC) count Ordered By: Oswaldohollie Phelps on 10-07-2024 WBC (Bld) [#/Vol] 10.0 10*3/uL 4.4-11.0 [facility] Magnetic resonance imaging r eportOrdered By: Anna Ramos on 10-02-2024 Study report [facility] Imaging Services [address], [place] [id number] MRI Abd WITH and W/O Contrast MR#: [id number] Acct: [id number] Name: COLLEEN NAQVI Rep #: [id number] : 1975 M 49 From: Tere Ramos MD PCP: Carolyn Phelps [facility] Status: REG CLI Study:MRI Abd WITH and W/O Contrast Date of E xam: 09/30/24 Exam# [id number] Ordering Dr: Joe Phelps dhaval [facility] PROCEDURE: MRI ABD WITH AND W/O CONTRAST, 09/30/2024 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 IV contrast: 10 mL Clariscan COMPARISON: 09/10/2024 FINDINGS: Variable overall very mild motion limitation. Note some abdominal viscera are excluded from the field of view as the exam was optimized for evaluation of the adrenals. Diffusion was not performed. Lung bases: 15 x 12 mm LEFT lower lobe nodule. Liver: Punctate subcapsular probable cyst in the anterior RIGHT lobe. Extremelyfaintly T2 bright and T1 isointense lesion in the central inferior RIGHT lobe measures 26 x 29 mm demonstrates homogeneous arterial phase hyperenhancement, fading to background signal intensity on more delayed postcontrast imaging. Spleen: Unremarkable. Gallbladder: Suspect adenomyosis along the fundus with nodular area of soft tissue thickening and cystic changes measuring 13 x 11 mm.. Pancreas: Unremarkable. Adrenals: Heterogeneously T1 and T2 bright LEFT renal mass measures 4.1 x 3.9 x 4.1 cm and appears centrally mostly centrally nonenhancing however with areas of peripheral wall thickening and suspected hypoenhancement up to 10 mm on subtraction imaging although there is some limitation related to motion. No definite macroscopic orintracellular fat identified. Mild surrounding stranding is nonspecific and may be related to hemorrhage. Kidneys: Trace nonspecific symmetric perinephric stranding. Bowel: Not well evaluated by MRI; better evaluated previously. No gross bowel dilatation. Diverticulosis. Lymph nodes: Unremarkable. Vasculature: Mild atherosclerosis. Peritoneum: Unremarkable. Bones: Grossly unremarkable on nondedicated evaluation. MRI/MRI Abd WITH and W/O Contrast IMPRESSION: 1. 4.1 cm hemorrhagic LEFT adrenal mass remains indeterminate by MRI and therefore warrants clinical follow-up such as PET/CT or tissue sampling. Note that the majority of the lesion centrally appears nonenhancing, likely reflecting blood products. Tissue sampling thus carries a risk of false negative/nondiagnostic results and should target peripheral elements to minimize this possibility, if performed. Correlation with medical history and any available more remote outside imaging may also be helpful. Mild surrounding stranding is nonspecific and may be reactive to hemorrhage. 2. Indeterminate 15 mm pulmonary nodule not well evaluated by MRI. This warrants follow-up CT chest in 3 months, PET-CT, or tissue sampling per the Fleischner recommendations for pulmonary nodule follow-up, presuming no history of known malignancy or immunosuppression. Additionally recommend more prompt CT chest to better establish a baseline and evaluate for possible additional nodules. 3. 29 mm hypervascular hepatic lesion is suboptimally characterized given the protocol is optimized for evaluation of the adrenals but may reflect FNH. Recommend either close attention on follow-up imaging to ensure stability versus more definitive characterization with multiphase hepatic protocol MRI with Eovist IV contrast. 4. Suspect 13 mm nodular appearance of adenomyosis along the gallbladder fundus. Recommend confirmation with ultrasound as this has a pathognomonic sonographic appearance. 5. Additional description as above. Reading Location: [id number] CC: Carolyn MCKEON NP-C Mattie ~ Laminating Machine Feeder: Signed [facility] MRI Abd WITH and W/O Contras ton 09-30-2024 MRI Abd WITH and W/O Contrast [facility] Imaging Services [address] [place] [address] MRI Abd WITH and W/O Contrast MR#: [id number] Acct: [id number] Name: COLLEEN NAQVI Rep #: [id number] : 1975 M 49 From: Anna Ramos MD PCP: Carolyn Phelps Status: REG CLI Study: MRI Abd WITH and W/O Contrast Date of Exam: Exam# [id number] Ordering Dr: Carolyn Phelps PROCEDURE: MRI ABD WITH AND W/O CONTRAST, 09/30/2024 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 IV contrast: 10 mL Clariscan COMPARISON: 09/10/2024 FINDINGS: Variable overall very mild motion limitation. Note some abdominal viscera are excluded from the field of view as the exam was optimized for evaluation of the adrenals. Diffusion was not performed. Lung bases: 15 x 12 mm LEFT lower lobe nodule. Liver: Punctate subcapsular probable cyst in the anterior RIGHT lobe. Extremely faintly T2 bright and T1 isointense lesion in the central inferior RIGHT lobe measures 26 x 29 mm demonstrates homogeneous arterial phase hyperenhancement, fading to background signal intensity on more delayed postcontrast imaging. Spleen: Unremarkable. Gallbladder: Suspect adenomyosis along the fundus with nodular area of soft tissue thickening and cystic changes measuring 13 x 11 mm.. Pancreas: Unremarkable. Adrenals: Heterogeneously T1 and T2 bright LEFT renal mass measures 4.1 x 3.9 x 4.1 cm and appears centrally mostly centrally nonenhancing however with areas of peripheral wall thickening and suspected hypoenhancement up to 10 mm on subtraction imaging although there is some limitation related to motion. No definite macroscopic or intracellular fat identified. Mild surrounding stranding is nonspecific and may be related to hemorrhage. Kidneys: Trace nonspecific symmetric perinephric stranding. Bowel: Not well evaluated by MRI; better evaluated previously. No gross bowel dilatation. Diverticulosis. Lymph nodes: Unremarkable. Vasculature: Mild atherosclerosis. Peritoneum: Unremarkable. Bones: Grossly unremarkable on nondedicated evaluation. MRI/MRI Abd WITH and W/O Contrast IMPRESSION: 1. 4.1 cm hemorrhagic LEFT adrenal mass remains indeterminate by MRI and therefore warrants clinical follow-up such as PET/CT or tissue sampling. Note that the majority of the lesion centrally appears nonenhancing, likely reflecting blood products. Tissue sampling thus carries a risk of false negative/nondiagnostic results and should target peripheral elements to minimize this possibility, if performed. Correlation with medical history and any available more remote outside imaging may also be helpful. Mild surrounding stranding is nonspecific and may be reactive to hemorrhage. 2. Indeterminate 15 mm pulmonary nodule not well evaluated by MRI. This warrants follow-up CT chest in 3 months, PET-CT, or tissue sampling per the Fleischner recommendations for pulmonary nodule follow-up, presuming no history of known malignancy or immunosuppression. Additionally recommend more prompt CT chest to better establish a baseline and evaluate for possible additional nodules. 3. 29 mm hypervascular hepatic lesion is suboptimally characterized given the protocol is optimized for evaluation of the adrenals but may reflect FNH. Recommend either close attention on follow-up imaging to ensure stability versus more definitive characterization with multiphase hepatic protocol MRI with Eovist IV contrast. 4. Suspect 13 mm nodular appearance of adenomyosis along the gallbladder fundus. Recommend confirmation with ultrasound as this has a pathognomonic sonographic appearance. 5. Additional description as above. Reading Location: [id number] CC: Carolyn [facility] Beam Laminating Machine Feeder: Signed Normal [facility] Abdomen/Pelvis without Conto n 09-10-2024 Abdomen/Pelvis without Cont [facility] Imaging Services [address] [place], [place] [address] Abdomen/Pelvis without Cont MR#: [id number] Acct: [id number] Name: COLLEEN NAQVI Rep #: [id number] : 1975 M 49 From: Scar Sexton DO PCP: Care Physician,No Primary Status: REG ER Study: Abdomen/Pelvis without Cont Date of Exam: 08/22 04/16 Exam# [id number] Ordering Dr: Brody Villa DO PROCEDURE: ABDOMEN/PELVIS WITHOUT CONT 09/10/2024 REASON FOR EXAM: KIDNEY STONE TECHNIQUE: ABDOMEN/PELVIS WITHOUT CONT Noncontrast technique limits evaluation of the abdominal and pelvic viscera. Coronal and Sagittal reconstruction series were provided. One or more dose reduction techniques were used (e.g., Automated exposure control, adjustment of the mA and/or kV according to patient size, use of iterative reconstruction technique). FINDINGS: Lung bases: Lung bases are unremarkable The liver, gallbladder, spleen, pancreas and right kidney unremarkable 12 mm right adrenal nodule 4.4 cm left adrenal mass is seen. The right kidney in the left kidney demonstrate no hydroureteronephrosis there is mild fat stranding around the left adrenal mass which appears unrelated to left renal pathology. Bladder: Urinary bladder is unremarkable. Reproductive Organs: Unremarkable Bowel: Normal caliber and appearance. Appendix: No inflammatory process in the right lower quadrant. Lymph nodes: No pathologic Vasculature: 0 normal caliber. Very low plaque burden Peritoneum / Retroperitoneum: No ascites. Bones: No aggressive bone lesion CT/Abdomen/Pelvis without Cont IMPRESSION: Suspicious left adrenal mass and possibly small. MRI abdomen with inphase and out of phase imaging could provide more information about the adrenal lesions Reading Location: [facility] CC: Dr. Brody Villa DO; No Primary Care Physician Laminating Machine Feeder: Signed Normal [facility] Absolute lymphocyte countOrd ered By: Brody Villa on 09-10-2024 Lymphocytes Auto (Unsp spec) [#/Vol] 2.25 10*3/uL 0.83-4.51 [facility] Absolute neutrophil countOrd ered By: Brody Villa on 09-10-2024 Neutrophils (Bld) [#/Vol] 14.2 10*3/uL High 2.0-7.7 [facility] Anion gap in Serum or Plasma Ordered By: Brody Villa on 09-10-2024 Anion gap [Moles/Vol] 14 mmol/L 5-15 [facility] Automated lymphocyte count a s percentage of total leukocytesOrdered By: Brody Daisy on 09-10-2024 Lymphocytes/100 WBC Auto (Unsp spec) 12.7 % Low - [facility] BUN/creatinine ratioOrdered By: Brody Villa on 09-10-2024 Urea nitrogen/Creatinine [Mass ratio] 18.2 mg/mg 10- [facility] Basic Metabolic Profile (BMP )on 09-10-2024 BUN/CRE 18.2 RATIO Normal - [facility] Comment on above: Performed By: #### L 100.0100, L500.2500 #### [facility] [address] [place], [address] Calcium [Mass/Vol] 9.8 mg/dL Normal 7.6-11.0 [facility] Comment on above: Performed By: #### L 100.0100, L500.2500 #### [facility] [address] [place], [address] Chloride [Moles/Vol] 99 mmol/L Normal 98-108 [facility] Comment on above: Performed By: #### L 100.0100, L500.2500 #### [facility] [address] [place], [address] CO2 [Moles/Vol] 24.0 mmol/L Normal 21.0-32.0 [facility] Comment on above: Performed By: #### L 100.0100, L500.2500 #### [facility] [address] [place], [address] Creatinine [Mass/Vol] 0.88 mg/dL Normal 0.70-1.20 [facility] Comment on above: Performed By: #### L 100.0100, L500.2500 #### [facility] [address] [place], [address] ECRCL 111.54 ml/min Normal 50-250 [facility] Comment on above: Performed By: #### L 100.0100, L500.2500 #### [facility] [address] [place], [address] GAP 14 Normal 5-15 [facility] Comment on above: Performed By: #### L 100.0100, L500.2500 #### [facility] [address] [place], [address] GFR/1.73 sq M.predicted among non-blacks MDRD (S/P/Bld) [Vol rate/Area] 106 mL/min/{1.73_m2} Normal >60 [facility] Comment on above: Result Comment: mL/m in/1.73m2 CKD-EPI Creatinine Equation (2020) Performed By: #### L 100.0100, L500.2500 #### [facility] [address] [place], [address] Glucose [Mass/Vol] 132 mg/dL High 70-99 [facility] Comment on above: Performed By: #### L 100.0100, L500.2500 #### [facility] [address] [place], [address] Potassium [Moles/Vol] 3.9 mmol/L Normal 3.3-5.1 [facility] Comment on above: Performed By: #### L 100.0100, L500.2500 #### [facility] [address] [place], [address] Sodium [Moles/Vol] 137 mmol/L Normal 133-145 [facility] Comment on above: Performed By: #### L 100.0100, L500.2500 #### [facility] [address] [place], [address] Urea nitrogen [Mass/Vol] 16 mg/dL Normal 4-19 [facility] Comment on above: Performed By: #### L 100.0100, L500.2500 #### [facility] [address] [place], [address] Basophil percentageOrdered B y: Brody Villa on 09-10-2024 Basophils/100 WBC (Bld) 0.3 % 0-1 [facility] Bilirubin Test strip Ql (U)O rdered By: Brody Villa on 09-10-2024 Bilirubin Ql (U) Negative Negative [facility] Bilirubin directOrdered By: Brody Le on 09-10-2024 Bilirubin.direct [Mass/Vol] 0.21 mg/dL 0.00-0.30 [facility] Bilirubin, totalOrdered By: Brody Villa on 09-10-2024 Bilirubin [Mass/Vol] 0.75 mg/dL 0.00-1.30 [facility] CBC W/Diff, Automatedon 08-22 Absolute Lymph 2.25 X10 3/uL Normal 0.83-4.51 [facility] Comment on above: Performed By: #### L 100.0100, L500.2500 #### [facility] [address] [place], [address] Absolute Neut 14.2 X10 3/uL High 2.0-7.7 [facility] Comment on above: Performed By: #### L 100.0100, L500.2500 #### [facility] [address] [place], [address] Basophils/100 WBC (Bld) 0.3 % Normal 0-1 [facility] Comment on above: Performed By: #### L 100.0100, L500.2500 #### [facility] [address] [place], [address] Eosinophils/100 WBC (Bld) 0.0 % Normal 0-5 [facility] Comment on above: Performed By: #### L 100.0100, L500.2500 #### [facility] [address] [place], [address] Erythrocyte distribution width (RBC) [Ratio] 13.8 % Normal 11.6-14.6 [facility] Comment on above: Performed By: #### L 100.0100, L500.2500 #### [facility] [address] [place], [address] Hematocrit (Bld) [Volume fraction] 46.0 % Normal 40-54 [facility] Comment on above: Performed By: #### L 100.0100, L500.2500 #### [facility] [address] [place], [address] Hemoglobin (Bld) [Mass/Vol] 16.0 g/dL Normal 13.0-16.5 [facility] Comment on above: Performed By: #### L 100.0100, L500.2500 #### [facility] [address] [place], [address] IG% 0.700 Normal 0.0-0.9 [facility] Comment on above: Result Comment: IG% - Immature Granulocytes (promyelocytes, myelocytes and metamyelocytes) > 1% indicates that a LEFT SHIFT is Present. Performed By: #### L 100.0100, L500.2500 #### [facility] [address] [place], [address] Lymphocytes/100 WBC (Bld) 12.7 % Low 19-41 [facility] Comment on above: Performed By: #### L 100.0100, L500.2500 #### [facility] [address] [place], [address] MCH (RBC) [Entitic mass] 28.9 pg Normal 27.0-32.0 [facility] Comment on above: Performed By: #### L 100.0100, L500.2500 #### [facility] [address] [place], [address] MCHC (RBC) [Mass/Vol] 34.8 g/dL Normal 32-36 [facility] Comment on above: Performed By: #### L 100.0100, L500.2500 #### [facility] [address] [place], [address] MCV (RBC) [Entitic vol] 83.2 fL Normal 80-94 [facility] Comment on above: Performed By: #### L 100.0100, L500.2500 #### [facility] [address] [place], [address] Monocytes/100 WBC (Bld) 5.7 % Normal 0-10 [facility] Comment on above: Performed By: #### L 100.0100, L500.2500 #### [facility] [address] [place], [address] Neutrophils/100 WBC (Bld) 80.6 % High 47-70 [facility] Comment on above: Performed By: #### L 100.0100, L500.2500 #### [facility] [address] [place], [address] Nucleated RBC (Bld) [#/Vol] 0 10*3/uL Normal 0-5 [facility] Comment on above: Performed By: #### L 100.0100, L500.2500 #### [facility] [address] [place], [address] Platelet mean volume (Bld) [Entitic vol] 8.5 fL Normal 6.2-12.0 [facility] Comment on above: Performed By: #### L 100.0100, L500.2500 #### [facility] [address] [place], [address] Platelets (Bld) [#/Vol] 369 10*3/uL Normal 150-450 [facility] Comment on above: Performed By: #### L 100.0100, L500.2500 #### [facility] [address] [place], [address] RBC (Bld) [#/Vol] 5.53 10*6/uL Normal 4.6-6.2 [facility] Comment on above: Performed By: #### L 100.0100, L500.2500 #### [facility] [address] [place], [address] RDW SD 42.5 fl Normal 35.1-43.9 [facility] Comment on above: Performed By: #### L 100.0100, L500.2500 #### [facility] [address] [place], [address] WBC (Bld) [#/Vol] 17.7 10*3/uL High 4.4-11.0 [facility] Comment on above: Performed By: #### L 100.0100, L500.2500 #### [facility] [address] [place], [address] Carbon dioxide, total [Moles /volume] in Central venous bloodOrdered By: Brody Villa on 09-10-2024 CO2 [Moles/Vol] 24.0 mmol/L 21.0-32.0 [facility] Chloride assayOrdered By: Sergei Villa on 09-10-2024 Chloride [Moles/Vol] 99 mmol/L 98-108 [facility] Emergency Department Summary on 09-10-2024 Emergency Department Summary [facility] Medical Records Department [address] [place] [address] Emergency Department Summary 09/10/24 MR#: [id number] Acct: [id number] Name: COLLEEN NAQVI Rep #: [id number] : 1975 49 From: Brody Singh PCP: Care Physician,No Primary Status:DEP ER Location: ED HPI History of Present Illness Chief Complaint: Flank Pain Informant: patient and spouse/S.O. Narrative Narrative: Nontraumatic left side abdomen pain midnight rating to his flank. Pain would come and go. Nausea and vomiting no hematemesis. No urinary symptoms. No history of kidney stones. Appendectomy in the past. He took Tylenol and Lisa aspirin this morning no relief. States he takes this for his chronic back pain also. No back surgeries. Denies fever chills or sweats. Denies history of gastric ulcers or kidney injury. Normal bowel movements no black or bloody stools. Prior similar symptoms: No PFSH PFSH Medical History (Updated 09/10/24 @ 16:[address] Brody Villa, DO) Back pain Home Medications ???Medication ???Instructions ???Recorded ???Last Taken ???Type acetaminophen 500 mg capsule 1,000 mg PO Q6H PRN pain 09/10/24 09/10/24 History aspirin-caffeine 500 mg-32.5 mg 1 tab PO PRN 09/10/24 09/10/24 His tory tablet (Back and Body Pain Reliever) oxycodone-acetaminophen 5 mg-325 1 tab PO Q6H PRN PRN Pain 3 days 0 09/10/24 Unknown Rx mg tablet #12 TABLETS Allergy/AdvReac Type Severity Reaction Status Date / Time Penicillins Allergy Unknown Verified 09/10/24 12:09 Surgical History (Updated 09/10/24 @ 12:28 by Siria Kam) History of appendectomy Social History Smoking Status: Current every day smoker tobacco type: cigarettes ROS ROS ED Constitutional Constitutional ED: Denies chills, fever(s) or sweats ENT ENT ED: Denies sore throat Cardiovascular Cardiovascular: Denies chest pain, leg edema, palpitations or racing heartbeat Respiratory/Chest Respiratory/Chest: Denies cough, dyspnea or dyspnea on exertion Gastrointestinal Gastrointestinal: Reports abdominal pain, nausea and vomiting; Denies diarrhea Genitourinary Genitourinary ED: Denies dysuria, hematuria or urinary frequency Musculoskeletal Musculoskeletal: Denies back pain, extremity pain or neck pain Integumentary Denies rash or wounds Neurologic Neurologic: Denies headache(s), paresthesias or weakness EXAM Physical Exam Const Vital Signs: 09/10/24 12:08 09/10/24 16:24 09/10/24 16:25 Temperature 97.2 F L 98.3 F Temperature Source Temporal Pulse Rate 98 79 79 Respiratory Rate 14 17 17 Blood Pressure 148/96 H 136/89 H 136/89 H Blood Pressure Mean 113 104 104 Pulse Ox 99 100 100 Oxygen Delivery Method Room Air Room Air Positive well nourished and well developed General Appearance ED: well developed and NAD HEENT Reports moist mucous membranes normocephalic and atraumatic Eyes General Eye ED: Yes normal appearance of both eyes Neck full ROM Chest Wall Chest: Negative for tenderness Resp normal respiratory effort and normal air movement Effort and Inspection: symmetric chest movement; Negative for respiratory distress Cardio regular rate, regular rhythm and no murmurs Peripheral Pulses: pulses 2+ throughout GI normal to inspection, nondistended, normoactive bowel sounds GI Narrative: Mild tenderness left side abdomen mid axillary area no rash no CVA tenderness. No guarding or rebound. Palpation: Negative for guarding or rebound tenderness present Extremity normal to inspection General Extremety ED: Negative for edema or tenderness General Extremity: Negative for edema Neuro oriented x3 and no sensory deficits noted Sensorium / Orientation: awake and alert Skin no rashes or lesions noted and no wounds MDM MDM MDM Narrative Medical decision making narrative: Interventions / MDM: Differential diagnosis: Left flank pain, left adrenal mass Diagnosis considered but do not suspect: Kidney stone however workup negative. Colitis however CT negative. My EKG interpretation: N/A Imaging independently reviewed and interpreted by myself: CT abdomen pelvis: 4.4 cm left adrenal mass, 12 mm right adrenal nodule, no renal stones noted. External documents reviewed: N/A Test considered but not ordered:N/A ED course: Patient presented renal colic symptoms pain causing nausea and vomiting. Left side pain rating to his back. Renal stone protocol initiated. IV established for labs, urine ordered. Fluids, Zofran, Toradol, morphine. CT abdomen pelvis for further evaluation. 1510: Pain more controlled this time on workup and white count 17. Urine negative for infection. Normal creatinine 0.88. Lipase LFTs normal. CT scan without kidney stones or obstructive process (more content not included)... Normal [facility] Eosinophil percentageOrdered By: Brody Le on 09-10-2024 Eosinophils/100 WBC (Bld) 0.0 % 0-5 [facility] Erythrocyte distribution wid th ratioOrdered By: Brody Villa on 09-10-2024 Erythrocyte distribution width (RBC) [Ratio] 13.8 % 11.6-14.6 [facility] Erythrocyte distribution wid th standard deviationOrdered By: Brody Villa on 09-10-2024 Erythrocyte distribution width (RBC) [Ratio] 42.5 fl 35.1-43.9 [facility] Glomerular filtration rate ( GFR) estimation/1.73 sq m using serum, plasma, or whole bOrdered By: Brody Villa on 09-10-2024 GFR/1.73 sq M.predicted among non-blacks MDRD (S/P/Bld) [Vol rate/Area] 106 mL/min/{1.73_m2} >60 [facility] Comment on above: mL/min/1.73m2 CKD-EP I Creatinine Equation (2020) Hematocrit Auto (Bld) [Volum e fraction]Ordered By: Brody Villa on 09-10-2024 Hematocrit (Bld) [Volume fraction] 46.0 % 40-54 [facility] Hemoglobin measurementOrdere d By: Brody Villa on 09-10-2024 Hemoglobin (Bld) [Mass/Vol] 16.0 g/dL 13.0-16.5 [facility] Immature granulocytes/100 WB C Auto (Bld)Ordered By: Brody Villa on 09-10-2024 Immature granulocytes/100 WBC (Bld) 0.700 % 0.0-0.9 [facility] Comment on above: IG% - Immature Granu locytes (promyelocytes, myelocytes and metamyelocytes) > 1% indicates that a LEFT SHIFT is Present. Ketones Test strip Ql (U)Ord ered By: Brody Villa on 09-10-2024 Ketones Ql (U) Negative Negative [facility] Laboratory - Chemistry and C hemistry - challengeOrdered By: Brody Villa on 09-10-2024 AST [Catalytic activity/Vol] 21 U/L <38 [facility] Lipaseon 09-10-2024 Lipase [Catalytic activity/Vol] 21 U/L Normal 13-75 [facility] Comment on above: Result Comment: Zechariah huizar note: LIPASE revised reference range effective 22. New Lipase methodology. Expected to produce lower values than the previous assay method. NEW Reference Range: 13 - 75 U/L Performed By: #### L 500.3400, L501.2450 #### [facility] [address] [place], [address] Lipase measurementOrdered By : Brody Villa on 09-10-2024 Lipase [Catalytic activity/Vol] 21 U/L 13-75 [facility] Comment on above: Please note:LIPASE r evised reference range effective 22. New Lipase methodology. Expected to produce lower values than the previous assay method. NEW Reference Range: 13 - 75 U/L Liver Profileon 09-10-2024 Albumin [Mass/Vol] 4.6 g/dL Normal 3.5-5.0 [facility] Comment on above: Performed By: #### L 500.3400, L501.2450 #### [facility] [address] [place], [address] ALK PHOS 80 U/L Normal 40-129 [facility] Comment on above: Performed By: #### L 500.3400, L501.2450 #### [facility] [address] [place], [address] ALT [Catalytic activity/Vol] 23 U/L Normal <=46 [facility] Comment on above: Performed By: #### L 500.3400, L501.2450 #### [facility] [address] [place], [address] AST [Catalytic activity/Vol] 21 U/L Normal <=37 [facility] Comment on above: Performed By: #### L 500.3400, L501.2450 #### [facility] [address] [place], [address] Bilirubin [Mass/Vol] 0.75 mg/dL Normal 0.00-1.30 [facility] Comment on above: Performed By: #### L 500.3400, L501.2450 #### [facility] [address] [place], [address] Bilirubin.direct [Mass/Vol] 0.21 mg/dL Normal 0.00-0.30 [facility] Comment on above: Performed By: #### L 500.3400, L501.2450 #### [facility] [address] [place], [address] Globulin (S) [Mass/Vol] 3.4 g/dL Normal 2.2-4.2 [facility] Comment on above: Performed By: #### L 500.3400, L501.2450 #### [facility] [address] [place], [address] T PROT 8.0 g/dL Normal 5.9-8.4 [facility] Comment on above: Performed By: #### L 500.3400, L501.2450 #### [facility] [address] [place], [address] MCV (mean corpuscular volume ) determinationOrdered By: Brody Villa on 09-10-2024 MCV (RBC) [Entitic vol] 83.2 fL 80-94 [facility] Mean corpuscular hemoglobin (MCH) determinationOrdered By: Brody Villa on 09-10-2024 MCH (RBC) [Entitic mass] 28.9 pg 27.0-32.0 [facility] Mean corpuscular hemoglobin concentration (MCHC) determinationOrdered By: Brody Villa on 09-10-2024 MCHC (RBC) [Mass/Vol] 34.8 g/dL 32-36 [facility] Mean platelet volume determi nationOrdered By: Brody Villa on 09-10-2024 Platelet mean volume (Bld) [Entitic vol] 8.5 fL 6.2-12.0 [facility] Microscopic analysis of urin e for red blood cells (RBC)Ordered By: Brody Villa on 09-10-2024 Microscopic analysis of urine for red blood cells (RBC) 0-5 SEEN /hpf 0-5 [facility] Monocyte percentageOrdered B y: Brody Villa on 09-10-2024 Monocytes/100 WBC (Bld) 5.7 % 0-10 [facility] Mucus LM Ql (Urine sed)Order ed By: Brody Villa on 09-10-2024 Mucus Ql (Urine sed) 0 SEEN /hpf [facility] Neutrophil percentageOrdered By: Brody Villa on 06-21-2025 Neutrophils/100 WBC (Bld) 80.6 % High 47-70 [facility] Nitrite Test strip Ql (U)Ord ered By: Brody Villa on 09-10-2024 Nitrite Ql (U) Negative Negative [facility] Nucleated red blood cell per centageOrdered By: Brody Villa on 09-10-2024 Nucleated RBC/100 WBC (Bld) [Ratio] 0 % 0-5 [facility] Platelet countOrdered By: Sergei Villa on 09-10-2024 Platelets (Bld) [#/Vol] 369 10*3/uL 150-450 [facility] Potassium measurement (mass/ volume)Ordered By: Brody Villa on 09-10-2024 Potassium (Unsp spec) [Mass/Vol] 3.9 mmol/L 3.3-5.1 [facility] Protein Test strip Ql (U)Ord ered By: Brody Villa on 09-10-2024 Protein Ql (U) 30 mg/dl High Negative [facility] RBC Auto (Bld) [#/Vol]Ordere d By: Brody Villa on 09-10-2024 RBC (Bld) [#/Vol] 5.53 10*6/uL 4.6-6.2 [facility] Serum creatinine measurement (mass/volume)Ordered By: Brody Villa on 09-10-2024 Creatinine [Mass/Vol] 0.88 mg/dL 0.70-1.20 [facility] Serum globulin measurementOr dered By: Brody Villa on 09-10-2024 Globulin (S) [Mass/Vol] 3.4 g/dL 2.2-4.2 [facility] Serum glucose measurement (m ass/volume)Ordered By: Brody Villa on 09-10-2024 Glucose [Mass/Vol] 132 mg/dL High 70-99 [facility] Serum or plasma alanine nagel otransferase (ALT) measurementOrdered By: Brody Villa on 09-10-2024 ALT [Catalytic activity/Vol] 23 U/L <47 [facility] Serum or plasma albumin fatoumata urement (mass/volume)Ordered By: Brody Villa on 09-10-2024 Albumin [Mass/Vol] 4.6 g/dL 3.5-5.0 [facility] Serum or plasma alkaline celine sphatase measurementOrdered By: Brody Villa on 09-10-2024 ALP [Catalytic activity/Vol] 80 U/L 40-129 [facility] Serum or plasma calcium fatoumata urement (mass/volume)Ordered By: Brody Villa on 09-10-2024 Calcium [Mass/Vol] 9.8 mg/dL 7.6-11.0 [facility] Serum or plasma urea nitroge n measurement (mass/volume)Ordered By: Brody Villa on 09-10-2024 Urea nitrogen [Mass/Vol] 16 mg/dL 4-19 [facility] Sodium levelOrdered By: Brody Villa on 09-10-2024 Sodium [Moles/Vol] 137 mmol/L 133-145 [facility] Squamous epithelial cells de tection in urine sediment by light microscopyOrdered By: Brody Villa on 09-10-2024 Epithelial cells.squamous LM Ql (Urine sed) 0 SEEN /hpf 0-5 [facility] Total proteinOrdered By: Ajit Villa on 09-10-2024 Protein [Mass/Vol] 8.0 g/dL 5.9-8.4 [facility] Urinalysis, Completeon 09-10 WBC 0 SEEN Normal 0-5 [facility] Comment on above: Order Comment: CLEAN CATCH Performed By: #### L 400.0001 #### [facility] [address] [facility] [address] RBC 0-5 SEEN Normal 0-5 [facility] Comment on above: Order Comment: CLEAN CATCH Performed By: #### L 400.0001 #### [facility] [address] [facility] [address] BACTERIA 0 SEEN Normal None Seen [facility] Comment on above: Order Comment: CLEAN CATCH Performed By: #### L 400.0001 #### [facility] [address] [place], [address] EPI,SQUAMOUS 0 SEEN Normal 0-5 [facility] Comment on above: Order Comment: CLEAN CATCH Performed By: #### L 400.0001 #### [facility] [address] [place], [place], [address] Mucus Ql (Urine sed) 0 SEEN Normal [facility] Comment on above: Order Comment: CLEAN CATCH Performed By: #### L 400.0001 #### [facility] [address] [place], [place], [id number] Urine clarityOrdered By: Ajit Villa on 09-10-2024 Clarity (U) Clear Clear [facility] Urine color determinationOrd ered By: Brody Villa on 09-10-2024 Color (U) Yellow Yellow [facility] Urine glucose detectionOrder ed By: Brody Villa on 09-10-2024 Glucose Ql (U) Normal mg/dl Normal [facility] Urine leukocyte esterase det ection by dipstickOrdered By: Brody Villa on 09-10-2024 Leukocyte esterase Test strip Ql (U) Negative Negative [facility] Urine pHOrdered By: Brody Villa on 09-10-2024 pH (U) 6.0 [pH] 5.0 - 8.0 [facility] Urine sediment bacteria coun t by microscopy (number/high power field)Ordered By: Brody Villa on 09-10-2024 Bacteria LM.HPF (Urine sed) [#/Area] 0 /[HPF] None Seen [facility] Urine specific gravity measu rementOrdered By: Brody Villa on 09-10-2024 Specific gravity (U) [Rel density] 1.020 1.002-1.030 [facility] Urine urobilinogen measureme ntOrdered By: Brody Villa on 09-10-2024 Urobilinogen Ql (U) Normal mg/dl Normal [facility] White blood cell (WBC) count Ordered By: Brody Villa on 09-10-2024 WBC (Bld) [#/Vol] 17.7 10*3/uL High 4.4-11.0 [facility] White blood cell countOrdere d By: Brody Villa on 09-10-2024 White blood cell count 0 SEEN /hpf 0-5 [facility] CNTHERAPYon 11-07-2020 CNTHERAPY OT/PT/Speech Visit (PTWS) -------- COLLEEN NAQVI ([id number]) 1975 M Date Time Provider Department 11/07/20 8:30 AM MARY ANN PEREA Date Time Provider Department Center 11/07/2020 8:30 AM [id number] ANN PEREA [place] Reason for Visit: PT Discharge [752] Primary [...] times daily as needed for Muscle Spasm. -------- Normal [facility] CNOVon 10-18-2020 CNOV Office Visit (FAMPWS ) -------- COLLEEN NAQVI ([id number]) 1975 M Date Time Provider Department 10/18/20 [...] migraine to start. Nothing at time of visit seemed to relieve the pain. He [...] that time. Pt states he works at [employer]. States he works 3rd shift, only gets [...] Ne (more content not included)... Normal [facility] CNOVon 10-03-2020 CNOV Office Visit (UCWSTR ) -------- COLLEEN NAQVI ([id number]) 1975 M Date Time Provider Department 10/03/20 7:15 AM JORGE LUIS LOPEZ [facility] During your visit today, we recorded [...] 3rd shift is hard on him ([place]iah Bulpitt, lifts a lot) Relieving: nothing Pain relievers: [...] pr (more content not included)... Normal [facility] Vital Signs Date Time Vital Sign Value Performing Clinician Terrie mckeon 09-10-2024 16:25-0400 Body temperature 98.3 [degF] Dr. Brody Singh Work Phone: [facility] 09-10-2024 16:25-0400 Diastolic blood pressure 89 mm[Hg] Dr. Brody Singh Work Phone: [facility] 09-10-2024 16:25-0400 Heart rate 79 /min Dr. Brody Singh Work Phone: [facility] 09-10-2024 16:25-0400 Respiratory rate 17 /min Dr. Brody Singh Work Phone: [facility] 09-10-2024 16:25-0400 SaO2% (BldA) [Mass fraction] 100 % Dr. Brody Singh Work Phone: [facility] 09-10-2024 16:25-0400 Systolic blood pressure 136 mm[Hg] Dr. Brody Singh Work Phone: [facility] 09-10-2024 12:08-0400 Body height 175.[address] Brody Singh Work Phone: [facility] 09-10-2024 12:08-0400 Body mass index (BMI) [Ratio] 28.6 kg/m2 Dr. Brody Singh Work Phone: [facility] 09-10-2024 12:08-0400 Body weight 88.[address] Brody Singh Work Phone: [facility] Encounters Encounter Date Encounter Type Care Provider Facility Start: 11-10-2024 ambulatory Zebulun Beam VSC Facili ty:[facility] Start: 11-05-2024 ambulatory Zebulun Beam VSC Facili ty:[facility] Start: 10-07-2024 End: 10-07-[address] Brody Singh Work Phone: -Laboratory Start: 10-07-2024 End: 10-07-2024 Patient encounter procedure Zebulun Beam PATROL GUARD-C -Laboratory Work Phone: Start: 10-07-2024 End: 10-07-2024 ambulatory Zebulun Beam VSC Facility:[facility] Start: 09-30-2024 End: 09-30-[address] Brody Singh Work Phone: -MRI - [facility] Start: 09-30-2024 End: 09-30-2024 Patient encounter procedure Zebulun Beam PATROL GUARD-C -MRI - [facility] Work Phone: Start: 09-30-2024 End: 09-30-2024 ambulatory Zebulun Beam VSC Facility:[facility] Start: 09-22-2024 End: 09-22-2024 Transcribe Orders Zebulun Beam PATROL GUARD Other Phone: Referring Physician Comment on above: Adrenal mass (HCC) ( Primary Dx) Start: 09-10-2024 End: 09-10-2024 ambulatory Willi Hawley RN NURSE [employer]LE [employer]BER Start: 09-10-2024 End: 09-10-2024 Patient encounter procedure Willi Hawley RN NURSE [employer]BER Comment on above: Referral Request Start: 09-10-2024 End: 09-10-2024 Emergency department patient visit Dr. Brody Villa DO Work Phone: -Emergency Department Work Phone: Procedures Date Procedure Procedure Detail Performing Clinician Start: 10-07-2024 Urnls dip stick/tabl et reagent auto microscopy Dr. Brody Villa DO Work Phone: Start: 09-30-2024 MRI of abdomen with contrast Dr. Brody Villa DO Work Phone: Start: 09-10-2024 Urnls dip stick/tabl et reagent auto microscopy Dr. Brody Villa DO Work Phone: Start: 09-10-[address] Brody Villa DO Work Phone: Start: 09-10-2024 CT of abdomen and pe lvis without contrast Dr. Brody Singh Work Phone: Start: 11-19-2016 Lipid 1996 panel - S alirio or Plasma Willi Hawley RN Plan of Treatment Date Care Activity Detail Author Start: 11-21-2024 Influenza vaccination C [facility] Start: 09-10-2024 [facility] Start: 11-22-2023 Covid-19 Vaccine ( season) Covid-19 Vaccine ( season) [facility] Start: 11-19-2021 Lipid panel Lipid Screening [facility] Start: 2020 Diabetes Screening Diabetes Screenin g [facility] Start: 2020 Screening for malign ant neoplasm of colon [facility] Start: 1994 Hepatitis B Vaccine (1 of 3 - 19+ 3-dose series) Hepatitis B Vaccine (1 of 3 - 19+ 3-dose series) [facility] Start: 1994 Urine microalbumin profile DTaP,Tdap,Td Vaccine (1 - Tdap) [facility] Start: 1993 Anxiety Screening Anxiety Screening [facility] Start: 1993 Depression Screening Depression Scre ening [facility] Start: 1993 Hepatitis C screening Hepatitis C Sc reening [facility] Start: 1993 HIV screening HIV Screening [facility] Patient Education ED Flank Pain, Uncertain Cause [facility] Work Phone: Patient referral [facility] Work Phone: Immunizations Immunization Date Immunization Notes Care Provider Bebo morgan 02-22-2013 influenza virus vacc ine, unspecified formulation Willi Hawley RN [facility] Payers Date Payer Category Payer Self-pay [id number] 2024 Unknown [id number] 2024 Private Health Insurance REFEREN BASED PAYER [id number] 2014 Unknown [id number] Private Health Insurance [id number] Unknown [id number] Unknown [id number] Unknown [id number] Unknown [id number] Unknown [id number] Social History Date Type Detail Facility Start: 10-03-2020 End: 09-10-2024 Tobacco smoking status TXIS Smokes tobacco daily (finding) [facility] Start: 1975 Sex Assigned At Male [facility] History of tobacco use Cigarette Smoker C [facility] Start: 10-03-2020 End: 10-18-2020 Cigarettes smoked current (pack per day) - Reported 1.5 [facility] Start: 10-03-2020 Tobacco use and exposure Smokeless tobacco non-user [facility] Start: 10-18-2020 Alcoholic beverage intake Current drinker of alcohol (finding) [facility] Start: 10-03-2020 End: 10-18-2020 Tobacco use panel [facility] National Score (1-10 0), lower number is lower risk Not on file [facility] Start: 07-28-2014 Alcohol Comment occasional [facility] Start: 1975 [facility] Functional Status Date Assessment Result Facility 07-28-2014 Are you deaf, or do you have serious difficulty hearing No 07/28/2014 9:06 AM EDT Marissa Kramer LPN No [facility] 07-28-2014 Are you blind, or do you have serious difficulty seeing, even when wearing glasses No 07/28/2014 9:06 AM EDT Marissa Kramer LPN No [facility] 07-28-2014 Do you have serious difficulty walking or climbing stairs No 07/28/2014 9:06 AM EDT Marissa Kramer LPN No [facility] 07-28-2014 Do you have difficul ty dressing or bathing No 07/28/2014 9:06 AM EDT Marissa Kramer LPN No [facility] 07-28-2014 Because of a physica l, mental, or emotional condition, do you have difficulty doing errands alone such as visiting a physician's office or shopping No 07/28/2014 9:06 AM EDT Marissa Kramer LPN No [facility] Mental Status Date Assessment Result Facility 07-28-2014 Because of a physica l, mental, or emotional condition, do you have serious difficulty concentrating, remembering, or making decisions No 07/28/2014 9:06 AM EDT Marissa Kramer LPN No [facility] Clinical Notes 10-03-2020 to 09-10-2024 Telephone Encounter - Willi Hawley RN - 09/10/2024 3:23 PM EDTTelephone Encounter - Willi Hawley RN - 09/10/2024 3:23 PM EDT Note Date & Type Note Facility 09-10-2024 Telephone encounter Note Reason for call: Caregiver (Jamalsheree, assistant secretary at [facility]) calling with request to speak with on-call provider for Dr. Marrero. Paging request related to new adrenal mass found for patient during ER visit. Caregiver states that ER attending requested that physician be paged to ensure follow-up care following hospital discharge. Patient was last seen by Dr. Marrero in 2020, transferred to [facility] by postage machine operator due to no longer being an active patient. Outcome: Advised caregiver that on-call cannot be paged due to patient no longer being established with this provider. Spoke with Dr. Mclean at [facility] to confirm details of patient's follow-up needs. Spoke with patient, conferenced to Denisse in Appointment Center for PCP scheduling. Caregiver denies any new or worsening symptoms of which a provider is not aware:Yes. GO TO THE EMERGENCY ROOM OR CALL 911 IF: * You develop any new symptoms * Your condition worsens * You are concerned or anxious about your condition for any other reason. If you have any questions, you can call Nurse telecommunications linesworker back. [facility] 09-10-2024 Miscellaneous Notes Reason for call: Caregiver (Anabell, assistant secretary at [facility]) calling with request to speak with on-call provider for Dr. Marrero. Paging request related to new adrenal mass found for patient during ER visit. Caregiver states that ER attending requested that physician be paged to ensure follow-up care following hospital discharge. Patient was last seen by Dr. Marrero in 2020, transferred to [facility] by postage machine operator due to no longer being an active patient. Outcome: Advised caregiver that on-call cannot be paged due to patient no longer being established with this provider. Spoke with Dr. Mclean at [facility] to confirm details of patient's follow-up needs. Spoke with patient, conferenced to Denisse in Appointment Center for PCP scheduling. Caregiver denies any new or worsening symptoms of which a provider is not aware:Yes. GO TO THE EMERGENCY ROOM OR CALL 911 IF: * You develop any new symptoms * Your condition worsens * You are concerned or anxious about your condition for any other reason. If you have any questions, you can call Nurse telecommunications linesworker back. documented in this encounter [facility] 09-10-2024 Radiology Diagnostic study note [facility] Imaging Services [address] [place], [place] [address] Abdomen/Pelvis without Cont MR#: [id number] Acct: [id number] Name: COLLEEN NAQVI Rep #: [id number] : 1975 M 49 From: Pet er Peer DO PCP: Care Physician,No Primary Status: REG ER Study:Abdomen/Pelvis without Cont Date of Exa m: 09/10/24 Exam# [id number] Ordering Dr: Brody Villa DO PROCEDURE: ABDOMEN/PELVIS WITHOUT CONT 09/10/2024 REASON FOR EXAM: KIDNEY STONE TECHNIQUE: ABDOMEN/PELVIS WITHOUT CONT Noncontrast technique limits evaluation of the abdominal and pelvic viscera. Coronal and Sagittal reconstruction series were provided. One or more dose reduction techniques were used (e.g., Automated exposure control, adjustment of the mA and/or kV according to patient size, use of iterative reconstruction technique). FINDINGS: Lung bases: Lung bases are unremarkable The liver, gallbladder, spleen, pancreas and right kidney unremarkable 12 mm right adrenal nodule 4.4 cm left adrenal mass is seen. The right kidney in the left kidney demonstrate no hydroureteronephrosis there is mild fat stranding around the left adrenal mass which appears unrelated to left renal pathology. Bladder: Urinary bladder is unremarkable. Reproductive Organs: Unremarkable Bowel: Normal caliber and appearance. Appendix: No inflammatory process in the right lower quadrant. Lymph nodes: No pathologic Vasculature: 0 normal caliber. Very low plaque burden Peritoneum / Retroperitoneum: No ascites. Bones: No aggressive bone lesion CT/Abdomen/Pelvis without Cont IMPRESSION: Suspicious left adrenal mass and possibly small. MRI abdomen with inphase and out of phase imaging could provide more information about the adrenal lesions Reading Location: [facility] CC: Dr. Brody Villa DO; No Primary Care Physician ~ Laminating Machine Feeder: Signed [facility] 11-09-2020 Note Patient Outreach (FA MPWS) COLLEEN NAQVI ([id number]) 1975 M Date Time Provider Department 11/09/20 [...] Gap or Scheduling/Wellness visits Payer: Payor: [facility]P [facility] / Plan: THP / Product Type: PPO [...] future healthcare decisions with a power of prosecuting attorney, living will, or advance directives? Yes. [...] by JOSEFINA CONNER MA on 11/09/20 [facility] 11-09-2020 Note HNO ID: [id number] Author: Josefina Conner Ma Service: ? Author [...] Gap or Scheduling/Wellness visits Payer: Payor: [facility]P [facility] / Plan: THP / Product Type: PPO [...] future healthcare decisions with a power of prosecuting attorney, living will, or advance directives? Yes. Have you shared those records with your doctor? Yes Referrals: N/A Message Sent to Practice: NO Navigation Signature: Josefina Conner Ma November 09, 2020 10:38 AM [facility] 11-07-2020 Note HNO ID: [id number] Author: Mary Ann Perea PT Service: ? Author Type: Physical Therapist Type: Progress Notes Filed: 01/28/2021 1:36 PM Note Text: 01/28/2021 [facility] RE[facility]IL[facility]ORTS THERAP[facility] PHYSICAL THERAPY [...] or scheduled additional follow-up appointments. 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. Pt. describes continuous reaching and overhead movements. Patient Goals: Pt. goal is to reduce intensity and frequency of neck pain and headaches. Functional Limitations: lifting;reaching overhead;driving;sleeping;carrying; pushing;use hand with arm at shoulder level;reaching behind [...] is Wo (more content not included)... [facility] 10-18-2020 Note HNO ID: [id number] Author: Anna Cardenas MD Service: ? Author [...] migraine to start. Nothing at time of visit seemed to relieve the pain. He [...] that time. Pt states he works at [employer]. States he works 3rd shift, only gets [...] 11/21/2020 LIPID (more content not included)... [facility] 10-03-2020 Note HNO ID: [id number] Author: Jorge Luis Lopez MD Service: ? [...] working 3rd shift is hard on him ([place], lifts a lot) Relieving: nothing Pain relievers: [...] care dyad. Jorge Luis Lopez MD [facility] Evaluation note No assessment information availa [facility] Work Phone: Evaluation note Diagnosis Mixed hyperlipidemia- Primary Hypertension, essential Unspecified essential hypertension GERD without esophagitis Esophageal reflux Chronic bilateral low back pain, with sciatica presence unspecified Smoking greater than 30 pack years Tobacco use disorder Current use of proton pump inhibitor Encounter for long-term (current) use of other medications Adrenal mass (HCC)- Primary Unspecified disorder of adrenal glands documented in this encounter [facility] Discharge instructions Additional Instructions Your workup negative for kidney stones however notes a 4.4 cm left adrenal mass. This likely explaining your pain. Attempted to reach out to [facility], unfortunately currently your insurance is not accepted through them. Please call we will start from clinic on Thursday for outpatient follow-up and further testing as needed. Take pain medicines as needed.[facility] Work Phone: Reason for referral (narrative)No reason for referral information available[facility] Work Phone: Summary Purpose Family History No Family History Records FoundNo Family History Records Found Advance Directives No Advanced Directives Records Found Advance Directive Response Recorded Date/ Time Do you have a Healthcare Power of Boat Builder? No September 10, 2024 12:27pm Advance Directives No January 03, 2016 1:39pm Chief Complaint and Reason for Visit Chief Complaint Admit Date FLANK September 10, 2024 12:0 8pm Chief Complaint Admit Date FLANK September 10, 2024 12:0 8pm NEOPLASM OF ADRENAL GLAND September 30 7:53am Additional Source Comments (unrecognized sect ion and content) No Status Records FoundNo Status Records Found INFORMATION SOURCE (unrecogn ized section and content) DATE CREATED AUTHOR 05/03/2021 [facility] DATE CREATED AUTHOR AUTHOR'S ORGANIZ ATION 11/03/2024 [facility] Care Teams (unrecognized sec tion and content) Team Status: Active Member Role Status Dates No Primary Care Physician Primary Care Provider Active Team Status: Inactive Member Role Status Dates Dr. Brody Villa DO Emergency Provider Active Start : September 10, 2024 End: September 10, 2024 No Primary Care Physician Primary Care Provider Active Start: September 10, 2024 End: September 10, 2024 Engraving Press Operator Relationship Specialty Start Date End Date Carolyn Phelps NP [address] [place] [address] Family Medicine 09/22/24 Team Status: Active Member Role/Relationship Status Dates Carolyn MCKEON, PATROL GUARD-C Primary Care Provider Active Team Status: Inactive Member Role/Relationship Status Dates Dr. Brody Villa DO Attending Provider Active Start : September 10, 2024 End: September 10, 2024 Dr. Brody Le , DO Emergency Provider Active Start : September 10, 2024 End: September 10, 2024 No Primary Care Physician Primary Care Provider Active Start: September 10, 2024 End: September 10, 2024 Team Status: Inactive Member Role/Relationship Status Dates Zebulun Beam VSC, PATROL GUARD-C Primary Care Provider Active Start: September 30, 2024 End: September 30, 2024 Zebulun Beam VSC, PATROL GUARD-C Attending Provider Active Start: September 30, 2024 End: September 30, 2024 Zebulun Beam VSC, PATROL GUARD-C Referring Provider Active Start: September 30, 2024 End: September 30, 2024 Team Status: Inactive Member Role/Relationship Status Dates Zebulun Beam VSC, PATROL GUARD-C Primary Care Provider Active Start: October 07, 2024 End: October 07, 2024 Zebulun Beam VSC, PATROL GUARD-C Attending Provider Active Start: October 07, 2024 End: October 07, 2024 Goals (unrecognized section and content) Goals may be documented in a n alternate sectionGoals may be documented in an alternate sectionGoals may be documented in an alternate section Source Comments (unrecognize d section and content) In the event this informatio n is protected by the Federal Confidentiality of Alcohol and Drug Abuse Patient Records regulations: The Federal rules restrict any use of the information to criminally investigate or prosecute any alcohol or drug abuse patient.[facility] the event this information is protected by the Federal Confidentiality of Alcohol and Drug Abuse Patient Records regulations: The Federal rules restrict any use of the information to criminally investigate or prosecute any alcohol or drug abuse patient.[facility] Reason for Visit (unrecogniz ed section and content) Reason Comments Referral Request FOR RECORDS PERTAINING TO PATIENTS WHO ARE [...] BE BASED ON THE PRIMARY CLINICAL RECORDS. [facility]. provides no warranty or guarantee of the accuracy or completeness of information in this document.
== END | disposition home or self-care (01) ==
PROVIDERS: Referring Provider Nurse Practitioner Family; Visit Provider Nurse Practitioner Family
DX: K82.8 Other specified diseases of gallbladder (principal)
CPT/HCPCS: 76705

== ENCOUNTER → 2025-02-01 | Outpatient (CLI) | payer OTHER, SELFPAY ==
--- NOTE | 2025-02-01 15:31 | RAD_ITS ---
EXAM: XR Abdomen, 1 View and XR Chest, 1 View CLINICAL INDICATION: PAIN TECHNIQUE: Frontal view of the chest and abdomen/pelvis. COMPARISON: No relevant prior studies available. FINDINGS: LUNGS AND PLEURAL SPACES: Unremarkable. No consolidation. No pneumothorax. HEART: Unremarkable. No cardiomegaly. MEDIASTINUM: Unremarkable. Normal mediastinal contour. INTRAPERITONEAL SPACE: No free air. GASTROINTESTINAL TRACT: Fecal retention in the colon consistent with constipation. No dilation. BONES/JOINTS: Unremarkable. No acute fracture. RAD/Acute Abdomen Inc Chest IMPRESSION: Fecal retention in the colon consistent with constipation. Reading Location: [id number]
[2025-02-01 15:41] LABS: Mucous, Urine 0 SEEN /hpf (<or=2+); Red Blood Cells-Urine 0 SEEN /hpf (0-5); Squamous Epithelial Cells - UA 0 SEEN /hpf (0-5)
[2025-02-01 17:50] LABS: Hematocrit 45.5 % (40-54); Hemoglobin 15.5 g/dL (13.0-16.5); Immature Granulocytes Count 0.030 X10^3/uL (0.0-0.0); Mean Corp Hgb Conc 34.1 g/dL (32-36); Mean Corpuscular Volume 84.6 fL (80-94); Mean Platelet Vol. 9.0 fl (6.2-12.0); NRBC Flagged by Analyzer 0 % (0-5); Platelet Count 303 K/mm3 (150-450); RBC Distribution Width CV 13.8 % (11.6-14.6); RBC Distribution Width SD 42.9 fl (35.1-43.9); Red Blood Count 5.38 M/mm3 (4.6-6.2); White Blood Count 10.1 K/mm3 (4.4-11.0)
[2025-02-01 18:27] LABS: AST(SGOT) 24 U/L (<=37); Alanine Aminotransfer ALT/SGPT 24 U/L (<=46); Albumin, Serum 4.7 g/dL (3.5-5.0); Alkaline Phosphatase 55 U/L (40-129); Anion Gap 12 (5-15); BUN 18 mg/dL (4-19); BUN/Creat Ratio 16.7 RATIO (10-20); Calcium,Total 9.7 mg/dL (7.6-11.0); Carbon Dioxide 24.0 mmol/L (21.0-32.0); Chloride 101 mmol/L (98-108); Cholesterol 276 mg/dL (<=200); Globulin 2.9 g/dL (2.2-4.2); Glucose 95 mg/dL (70-99); Lipase 74 U/L (13-75); Low Density Lipoprotein Calc. 190 mg/dL; Magnesium 2.4 mg/dL (1.5-2.2); Potassium 4.0 mmol/L (3.3-5.1); Triglycerides 186 mg/dL; Very Low Density Lipoprotein 37 mg/dL (5-40); cholesterol:hdl ratio screen 5.43
[2025-02-01 20:48] LABS: Color, Urine Straw (Yellow); Glucose, Dipstick Normal (Normal); Ketone-Dipstick Negative (Negative); Leukocyte Esterase-Dipstick Negative /ul (Negative); Nitrite-Dipstick Negative (Negative); Occult Blood-Urine Negative /ul (Negative); Protein-Dipstick Negative (Negative); Specific Gravity, Urine 1.010 (1.002-1.030); Urine Bilirubin Dipstick Negative (Negative)
[2025-02-03 18:08] LABS: Immunoglobulin A 165 mg/dL (90-386); Thyroglobulin, Serum Qt. 15.4 ng/mL (1.4-29.2)
[2025-02-07 11:08] LABS: Egg, Whole <0.10 kU/L (Class 0); Mussels <0.10 kU/L (Class 0)
== END | disposition home or self-care (01) ==
LOC: MTLAB 15:31
PROVIDERS: PCP Family Medicine; Referring Provider Family Medicine; Visit Provider Family Medicine
DX: I10 Essential (primary) hypertension (principal); R10.9 Unspecified abdominal pain; R14.0 Abdominal distension (gaseous); E04.1 Nontoxic single thyroid nodule
CPT/HCPCS: 36415; 74022; 80053; 80061; 81001; 82784; 83516; 83690; 83735; 84432; 84439; 84443; 85025; 86003; 86005; 86255; 86800

== ENCOUNTER → 2025-02-17 | Outpatient (CLI) | payer OTHER, SELFPAY ==
--- OUTSIDE RECORDS SUMMARY | 2025-02-17 14:16 | XMS RPT_ITS | CCD ---
Author Organization [facility] ion [facility] Care Team Providers Care Net Maker Name Role Phone Dr. Brody Villa DO Emergency Provider [phone] Care Physician, No Primary Primary Care Provider Unavailable Unavailable Primary Care Provider Unavailabl e Beam PROCESS COORDINATOR, Zebulun Unavailable Dr. Brody Villa DO Attending Provider [phone] Beam PROCESS COORDINATOR-C, Zebulun Primary Care Provider Beam PROCESS COORDINATOR-C, Zebulun Attending Provider Beam PROCESS COORDINATOR-C, Zebulun Referring Provider Tannhof PROCESS COORDINATOR-C, Jacquelyn Attending Provider Tannhof PROCESS COORDINATOR-C, Jacquelyn Referring Provider Beam VSC, Zebulun Primary Care Unavailable Beam VSC, Zebulun Referring Unavailable Beam VSC, Zebulun Attending Unavailable Care Physician, No Primary Primary Care Unava ilable Brody Villa Attending Unavailable Jacquelyn Hightower Referring Unavailable Jacquelyn Hightower Attending Unavailable Beam VSC, Zebulun Primary Care Unavailable Beam VSC, Zebulun Primary Care Unavailable Beam VSC, Zebulun Attending Unavailable Beam VSC, Zebulun Primary Care Unavailable Jacquelyn Hightower Referring Unavailable Jacquelyn Hightower Attending Unavailable Allergies Allergy Classification Reported Allergen(s) Allergy Type Date of Onset Reaction(s) Facility (4 sources) Penicillins Allergy to substance 5 Unknown [facility] (2 sources) Aspirin Drug Allergy 3 Other: See Comments [facility] (2 sources) Penicillins Propensity to adverse reactions to drug 3 Other: See Comments [facility] (2 sources) SUMAtriptan Drug Allergy 4 GI Upset [facility] (1 source) Penicillins Drug allergy (disorder) 5 [facility] Repository Medications Current Medications Medication Drug Class(es) Dates Sig (Normalized) Sig (Original) acetaminophen 500 mg oral capsule (4 sources) Start: 09-10-2024 take 2 capsules by mouth every six hours as needed for pain Acetaminophen 500 mg capsule Active 1000 mg PO EVERY 6 HOURS as needed for pain September 10, 2024 12:00am acetaminophen 325 mg / oxyCODONE hydrochloride 5 mg oral tablet (4 sources) Opioid Agonist Start: 09-10-2024 take 1 tablet by mouth every six hours as needed for pain Oxycodone-Acetamino phen 5-325 mg tablet Active 1 {tbl} PO EVERY 6 HOURS NEEDED as needed for Pain 12 3 0 September 10, 2024 Mass of left adrenal gland Other specified disorders of adrenal gland aspirin 500 mg / caffeine 32.5 mg oral tablet (4 sources) Platelet Aggregation Inhibitor, Nonsteroidal Anti-inflammatory Drug, Central Nervous System Stimulant, Methylxanthine Start: 09-10-2024 Aspirin-Caffeine (Back And Body Pain Reliever) 500-32.5 mg tablet Active 1 {tbl} PO NEEDED September 10, 2024 12:00am cyclobenzaprine hydrochloride 10 mg oral tablet (6 sources) Muscle Relaxant Start: 11-18-2016 take 1 [...] / diphenhydrAMINE citrate 38.3 mg oral tablet (4 sources) Platelet Aggregation Inhibitor, Histamine-1 Receptor Antagonist, Nonsteroidal Anti-inflammatory Drug Start: 01-03-2016 End: 09-10-2024 take 1 tablet by mouth three times daily in the evening Aspirin-Diphenhyd ramine Citrat (Lisa Pm Caplet) 1 EACH tablet Discontinued 500 NMA PO THREE TIMES A DAY January 03, 2016 12:00am September 10, 2024 12:30pm etodolac 300 mg oral capsule (4 sources) Nonsteroidal Anti-inflammatory Drug Start: 11-07-2014 End: 09-10-2024 take 1 capsule by mouth three times daily at mealtime Etodolac 300 MG capsule Discontinued 300 mg PO 3 TIMES DAILY WITH MEALS 30 0 November 07, 2014 12:00am September 10, 2024 12:29pm with food omeprazole 40 mg delayed release oral capsule (4 sources) Proton Pump Inhibitor Start: 01-03-2016 End: 09-10-2024 Omeprazole (Prilosec) 40 MG capsule Discontinued 40 mg PO NEEDED as needed for Indigestion January 03, 2016 12:00am September 10, 2024 12:29pm Problems Active Problems Problem Classification Problem Date Documented Da te Episodic/Chronic Abdominal pain (5 sources) Left flank pain; Translations: [Unspecified abdominal [...] Onset: 5 02-23-2017 Chronic Other endocrine disorders (5 sources) Adrenal mass; Translations: [Other specified disorders [...] (2 sources) Drug therapy finding; Translations: [Other group home (current) drug therapy] Onset: 11-18-2016 11-18-2016 Episodic [...] Test Name Value Interpretation Reference Range Facility Abdomen Limitedon 11-05-2024 Abdomen Limited [facility] Imaging Services [address] [place] [id number] Abdomen Limited MR#: [id number] Acct: [id number] Name: COLLEEN NAQVI Rep #: [id number] : 1975 M 49 From: Blair browne MD PCP: Carolyn Phelps Willi PROCESS COORDINATOR-C Status: REG CLI Study: Abdomen Limited Date of Exam: 11/05/24 Exam# [id number] Ordering Dr: Jacquelyn Hightower PROCESS COORDINATOR-C PROCEDURE: ABDOMEN LIMITED 11/05/2024 REASON FOR EXAM: GALLBLADDER DISEASE TECHNIQUE: ABDOMEN LIMITED COMPARISON: 09/30/2024 MRI was reviewed FINDINGS: Liver is mildly enlarged and measures 17.2 cm. It shows normal echogenicity. On the current study no definite focal lesions. Normal bile ducts. Normal color flow. Portal vein is patent with hepatopetal flow. Gallbladder measures 8.1 cm. No definite stones. Negative Martini's sign. No pericholecystic fluid. No obvious wall thickening. Wall measures 2 mm. CBD measures 3 mm. The pancreas is heterogenous. No definite lesions. Right kidney measures 11.3 x 5.9 x 5.4 cm. Cortex measures 1.4 cm. No hydronephrosis. No stones. No mass. 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 No obvious abnormalities on the current study. Further evaluation is advised as clinically warranted Reading [facility] CC: DEION Hightower; Carolyn [facility] DEION Phelps Product Management Intern: Signed Normal [facility] Anion gap in Serum or Plasma Ordered By: Carolyn Phelps on 10-07-2024 Anion gap [Moles/Vol] 10 mmol/L 5-15 [facility] BUN/creatinine ratioOrdered By: rTuonghasbro children's hospitalhollie Phelps on 10-07-2024 Urea nitrogen/Creatinine [Mass ratio] 18.3 mg/mg 10-20 [facility] Bilirubin Test strip Ql (U)O rdered By: Truongrajeev Phelps on 10-07-2024 Bilirubin Ql (U) Negative Negative [facility] Bilirubin, totalOrdered By: [facility] Mattie on 10-07-2024 Bilirubin [Mass/Vol] 0.59 mg/dL 0.00-1.30 [facility] CBC-Complete Blood Cnt No Di ffon 10-07-2024 Erythrocyte distribution width (RBC) [Ratio] 13.6 % Normal 11.6-14.6 [facility] Comment on above: Performed By: #### L 501.9985, L100.0500, L400.2010, L500.4050 #### [facility] [address] [place], [address] Hematocrit (Bld) [Volume fraction] 41.5 % Normal 40-54 [facility] Comment on above: Performed By: #### L 501.9985, L100.0500, L400.2010, L500.4050 #### [facility] [address] [place], [address] Hemoglobin (Bld) [Mass/Vol] 14.3 g/dL Normal 13.0-16.5 [facility] Comment on above: Performed By: #### L 501.9985, L100.0500, L400.2010, L500.4050 #### [facility] [address] [place], [address] MCH (RBC) [Entitic mass] 29.1 pg Normal 27.0-32.0 [facility] Comment on above: Performed By: #### L 501.9985, L100.0500, L400.2010, L500.4050 #### [facility] [address] [place], [address] MCHC (RBC) [Mass/Vol] 34.5 g/dL Normal 32-36 [facility] Comment on above: Performed By: #### L 501.9985, L100.0500, L4.2010, L500.4050 #### [facility] [address] [place], [address] MCV (RBC) [Entitic vol] 84.3 fL Normal 80-94 [facility] Comment on above: Performed By: #### L 501.9985, L100.0500, L400.2010, L500.4050 #### [facility] [address] [place], [address] Platelet mean volume (Bld) [Entitic vol] 8.7 fL Normal 6.2-12.0 [facility] Comment on above: Performed By: #### L 501.9985, L100.0500, L400.2010, L500.4050 #### [facility] [address] [place], [address] Platelets (Bld) [#/Vol] 290 10*3/uL Normal 150-450 [facility] Comment on above: Performed By: #### L 501.9985, L100.0500, L400.2010, L500.4050 #### [facility] [address] [place], [address] RBC (Bld) [#/Vol] 4.92 10*6/uL Normal 4.6-6.2 [facility] Comment on above: Performed By: #### L 501.9985, L100.0500, L400.2010, L500.4050 #### [facility] [address] [place], [address] RDW SD 42.2 fl Normal 35.1-43.9 [facility] Comment on above: Performed By: #### L 501.9985, L100.0500, L400.2010, L500.4050 #### [facility] [address] [place], [address] WBC (Bld) [#/Vol] 10.0 10*3/uL Normal 4.4-11.0 [facility] Comment on above: Performed By: #### L 501.9985, L100.0500, L4.2010, L500.4050 #### [facility] [address] [place], [address] Carbon dioxide, total [Moles /volume] in Central venous bloodOrdered By: Carolyn Phelps on 10-07-2024 CO2 [Moles/Vol] 24.4 mmol/L 21.0-32.0 [facility] Chloride assayOrdered By: Truong Phelps on 10-07-2024 Chloride [Moles/Vol] 104 mmol/L 98-108 [facility] Comprehensive Metabolic Prof ilon 10-07-2024 Albumin [Mass/Vol] 4.3 g/dL Normal 3.5-5.0 [facility] Comment on above: Performed By: #### L 100.0100, L500.2500 #### [facility] [address] [place], [address] Albumin/Globulin [Mass ratio] 1.6 {ratio} Normal 0.9-2.4 [facility] Comment on above: Performed By: #### L 100.0100, L500.2500 #### [facility] [address] [place], [address] ALK PHOS 71 U/L Normal 40-129 [facility] Comment on above: Performed By: #### L 100.0100, L500.2500 #### [facility] [address] [place], [address] ALT [Catalytic activity/Vol] 23 U/L Normal <=46 [facility] Comment on above: Performed By: #### L 100.0100, L500.2500 #### [facility] [address] [place], [address] AST [Catalytic activity/Vol] 17 U/L Normal <=37 [facility] Comment on above: Performed By: #### L 100.0100, L500.2500 #### [facility] [address] [place], [address] Bilirubin [Mass/Vol] 0.59 mg/dL Normal 0.00-1.30 [facility] Comment on above: Performed By: #### L 100.0100, L500.2500 #### [facility] [address] [place], [address] BUN/CRE 18.3 RATIO Normal 10-20 [facility] Comment on above: Performed By: #### L 100.0100, L500.2500 #### [facility] [address] [place], [address] Calcium [Mass/Vol] 9.4 mg/dL Normal 7.6-11.0 [facility] Comment on above: Performed By: #### L 100.0100, L500.2500 #### [facility] [address] [place], [address] Chloride [Moles/Vol] 104 mmol/L Normal 98-108 [facility] Comment on above: Performed By: #### L 100.0100, L500.2500 #### [facility] [address] [place], [address] CO2 [Moles/Vol] 24.4 mmol/L Normal 21.0-32.0 [facility] Comment on above: Performed By: #### L 100.0100, L500.2500 #### [facility] [address] [place], [address] Creatinine [Mass/Vol] 1.03 mg/dL Normal 0.70-1.20 [facility] Comment on above: Performed By: #### L 100.0100, L500.2500 #### [facility] [address] [place], [address] GAP 10 Normal 5-15 [facility] Comment on above: Performed By: #### L 100.0100, L500.2500 #### [facility] [address] [place], [address] GFR/1.73 sq M.predicted among non-blacks MDRD (S/P/Bld) [Vol rate/Area] 89 mL/min/{1.73_m2} Normal >60 [facility] Comment on above: Result Comment: mL/m in/1.73m2 CKD-EPI Creatinine Equation (2020) Performed By: #### L 100.0100, L500.2500 #### [facility] [address] [place], [address] Globulin (S) [Mass/Vol] 2.7 g/dL Normal 2.2-4.2 [facility] Comment on above: Performed By: #### L 100.0100, L500.2500 #### [facility] [address] [place], [address] Glucose [Mass/Vol] 103 mg/dL High 70-99 [facility] Comment on above: Performed By: #### L 100.0100, L500.2500 #### [facility] [address] [place], [address] Potassium [Moles/Vol] 4.2 mmol/L Normal 3.3-5.1 [facility] Comment on above: Performed By: #### L 100.0100, L500.2500 #### [facility] [address] [place], [address] Sodium [Moles/Vol] 139 mmol/L Normal 133-145 [facility] Comment on above: Performed By: #### L 100.0100, L500.2500 #### [facility] [address] [place], [address] T PROT 7.0 g/dL Normal 5.9-8.4 [facility] Comment on above: Performed By: #### L 100.0100, L500.2500 #### [facility] [address] [place], [address] Urea nitrogen [Mass/Vol] 19 mg/dL Normal 4-19 [facility] Comment on above: Performed By: #### L 100.0100, L500.2500 #### [facility] [address] [place], [address] Erythrocyte distribution wid th ratioOrdered By: Carolyn Phelps on 10-07-2024 Erythrocyte distribution width (RBC) [Ratio] 13.6 % 11.6-14.6 [facility] Erythrocyte distribution wid th standard deviationOrdered By: Carolyn Phelps on 10-07-2024 Erythrocyte distribution width (RBC) [Ratio] 42.2 fl 35.1-43.9 [facility] Glomerular filtration rate ( GFR) estimation/1.73 sq m using serum, plasma, or whole bOrdered By: Carolyn Phelps on 10-07-2024 GFR/1.73 sq M.predicted among non-blacks MDRD (S/P/Bld) [Vol rate/Area] 89 mL/min/{1.73_m2} >60 [facility] Comment on above: mL/min/1.73m2 CKD-EP I Creatinine Equation (2020) Hematocrit Auto (Bld) [Volum e fraction]Ordered By: Carolyn Phelps on 10-07-2024 Hematocrit (Bld) [Volume fraction] 41.5 % 40-54 [facility] Hemoglobin A1con 10-07-2024 HbA1c (Bld) [Mass fraction] 5.9 % High <=5.6 [facility] Comment on above: Result Comment: Norm al < 5.7 % Prediabetic 5.7 - 6.4 % Diabetic >or= 6.5 % Please note range changes. Performed By: #### L 100.0100, L500.2500 #### [facility] [address] [place], [place], [id number] Hemoglobin A1c percentageOrd ered By: Carolyn Phelps on 10-07-2024 HbA1c (Bld) [Mass fraction] 5.9 % High <5.7 [facility] Comment on above: Normal < 5.7 % Predi abetic 5.7 - 6.4 % Diabetic >or= 6.5 % Please note range changes. Hemoglobin measurementOrdere d By: Carolyn Phelps on 10-07-2024 Hemoglobin (Bld) [Mass/Vol] 14.3 g/dL 13.0-16.5 [facility] Ketones Test strip Ql (U)Ord ered By: Carolyn Phelps on 10-07-2024 Ketones Ql (U) Negative Negative [facility] - Chemistry and C hemistry - challengeOrdered By: yumiko Phelps on 10-07-2024 AST [Catalytic activity/Vol] 17 U/L <38 [facility] MCV (mean corpuscular volume ) determinationOrdered By: Carolyn Phelps on 10-07-2024 MCV (RBC) [Entitic vol] 84.3 fL 80-94 [facility] Mean corpuscular hemoglobin (MCH) determinationOrdered By: Carolyn Phelps on 10-07-2024 MCH (RBC) [Entitic mass] 29.1 pg 27.0-32.0 [facility] Mean corpuscular hemoglobin concentration (MCHC) determinationOrdered By: Carolyn Phelps on 10-07-2024 MCHC (RBC) [Mass/Vol] 34.5 g/dL 32-36 [facility] Mean platelet volume determi nationOrdered By: Carolyn Beam on 10-07-2024 Platelet mean volume (Bld) [Entitic vol] 8.7 fL 6.2-12.0 [facility] Nitrite Test strip Ql (U)Ord ered By: Carolyn Phelps on 10-07-2024 Nitrite Ql (U) Negative Negative [facility] Platelet countOrdered By: Truong Phelps on 10-07-2024 Platelets (Bld) [#/Vol] 290 10*3/uL 150-450 [facility] Potassium measurement (mass/ volume)Ordered By: Carolyn Phelps on 10-07-2024 Potassium (Unsp spec) [Mass/Vol] 4.2 mmol/L 3.3-5.1 [facility] Protein Test strip Ql (U)Ord ered By: Carolyn Phelps on 10-07-2024 Protein Ql (U) 15 mg/dl High Negative [facility] RBC Auto (Bld) [#/Vol]Ordere d By: Carolyn Phelps on 10-07-2024 RBC (Bld) [#/Vol] 4.92 10*6/uL 4.6-6.2 [facility] Serum creatinine measurement (mass/volume)Ordered By: Carolyn Phelps on 10-07-2024 Creatinine [Mass/Vol] 1.03 mg/dL 0.70-1.20 [facility] Serum globulin measurementOr dered By: Carolyn Phelps on 10-07-2024 Globulin (S) [Mass/Vol] 2.7 g/dL 2.2-4.2 [facility] Serum glucose measurement (m ass/volume)Ordered By: Carolyn Phelps on 10-07-2024 Glucose [Mass/Vol] 103 mg/dL High 70-99 [facility] Serum or plasma alanine nagel otransferase (ALT) measurementOrdered By: Carolyn Phelps on 10-07-2024 ALT [Catalytic activity/Vol] 23 U/L <47 [facility] Serum or plasma albumin fatoumata urement (mass/volume)Ordered By: Zebulun Beam on 10-07-2024 Albumin [Mass/Vol] 4.3 g/dL 3.5-5.0 [facility] Serum or plasma albumin/glob ulin mass ratioOrdered By: Carolyn Beam on 10-07-2024 Albumin/Globulin [Mass ratio] 1.6 {ratio} 0.9-2.4 [facility] Serum or plasma alkaline celine sphatase measurementOrdered By: Carolyn Beam on 10-07-2024 ALP [Catalytic activity/Vol] 71 U/L 40-129 [facility] Serum or plasma calcium fatoumata urement (mass/volume)Ordered By: Turongbulun Beam on 10-07-2024 Calcium [Mass/Vol] 9.4 mg/dL 7.6-11.0 [facility] Serum or plasma urea nitroge n measurement (mass/volume)Ordered By: Carolyn Beam on 10-07-2024 Urea nitrogen [Mass/Vol] 19 mg/dL 4-19 [facility] Sodium levelOrdered By: Oswaldo Phelps on 10-07-2024 Sodium [Moles/Vol] 139 mmol/L 133-145 [facility] Total proteinOrdered By: Joe Phelps on 10-07-2024 Protein [Mass/Vol] 7.0 g/dL 5.9-8.4 [facility] Urinalysis, Routine (Dipstic k)on 10-07-2024 BILIRUBIN URINE Negative Normal Negative [facility] Comment on above: Order Comment: Urine , Random Performed By: #### L 100.0100, L500.2500 #### [facility] [address] [place], [place], [address] Clarity (U) Clear Normal Clear [facility] Comment on above: Order Comment: Urine , Random Performed By: #### L 100.0100, L500.2500 #### [facility] [address] [place], [address] Color (U) Yellow Normal Yellow [facility] Comment on above: Order Comment: Urine , Random Performed By: #### L 100.0100, L500.2500 #### [facility] [address] [place], [address] GLUCOSE, UR Normal Normal Normal [facility] Comment on above: Order Comment: Urine , Random Performed By: #### L 100.0100, L500.2500 #### [facility] [address] [place], [address] KETONE UR Negative Normal Negative [facility] Comment on above: Order Comment: Urine , Random Performed By: #### L 100.0100, L500.2500 #### [facility] [address] [place], [address] LEUK ESTERASE Negative Normal Negative [facility] Comment on above: Order Comment: Urine , Random Performed By: #### L 100.0100, L500.2500 #### [facility] [address] [place], [address] Nitrite Ql (U) Negative Normal Negative [facility] Comment on above: Order Comment: Urine , Random Performed By: #### L 100.0100, L500.2500 #### [facility] [address] [place], [address] OCCULT BLOOD-UR Negative Normal Negative [facility] Comment on above: Order Comment: Urine , Random Performed By: #### L 100.0100, L500.2500 #### [facility] [address] [place], [address] pH UR 5.0 Normal 5.0 - 8.0 [facility] Comment on above: Order Comment: Urine , Random Performed By: #### L 100.0100, L500.2500 #### [facility] [address] [place], [address] PROT DIPSTX 15 mg/dl Abnormal Negative [facility] Comment on above: Order Comment: Urine , Random Performed By: #### L 100.0100, L500.2500 #### [facility] [address] [place], [address] SP.GR. DIPSTX 1.020 Normal 1.002-1.030 [facility] Comment on above: Order Comment: Urine , Random Performed By: #### L 100.0100, L500.2500 #### [facility] [address] [place], [address] UROBILI Normal Normal Normal [facility] Comment on above: Order Comment: Urine , Random Performed By: #### L 100.0100, L500.2500 #### [facility] [address] [place], [address] Urine clarityOrdered By: Joe Phelps on 10-07-2024 Clarity (U) Clear Clear [facility] Urine color determinationOrd ered By: Carolyn Phelps on 10-07-2024 Color (U) Yellow Yellow [facility] Urine glucose detectionOrder ed By: Carolyn Phelps on 10-07-2024 Glucose Ql (U) Normal mg/dl Normal [facility] Urine leukocyte esterase det ection by dipstickOrdered By: Carolyn Phelps on 10-07-2024 Leukocyte esterase Test strip Ql (U) Negative Negative [facility] Urine pHOrdered By: Carolyn Phelps on 10-07-2024 pH (U) 5.0 [pH] 5.0 - 8.0 [facility] Urine specific gravity measu rementOrdered By: Carolyn Phelps on 10-07-2024 Specific gravity (U) [Rel density] 1.020 1.002-1.030 [facility] Urine urobilinogen measureme ntOrdered By: Carolyn Phelps on 10-07-2024 Urobilinogen Ql (U) Normal mg/dl Normal [facility] White blood cell (WBC) count Ordered By: Carolyn Phelps on 10-07-2024 WBC (Bld) [#/Vol] 10.0 10*3/uL 4.4-11.0 [facility] Magnetic resonance imaging r eportOrdered By: Anna Ramos on 10-02-2024 Study report [facility] Imaging Services [address] [place] [address] MRI Abd WITH and W/O Contrast MR#: [id number] Acct: [id number] Name: COLLEEN NAQVI Rep #: [id number] : 1975 M 49 From: Tere Ramos MD PCP: Carolyn Phelps [facility] PROCESS COORDINATOR-C Status: REG CLI Study:MRI Abd WITH and W/O Contrast Date of E xam: 09/30/24 Exam# [id number] Ordering Dr: Joe Phelps dhaval [facility] PROCESS COORDINATOR-C PROCEDURE: MRI ABD WITH AND W/O CONTRAST, [...] 5. Additional description as above. Reading Location: [id number] CC: Carolyn MCKEON PROCESS COORDINATOR-C Mattie ~ Product Management Intern: Signed [facility] MRI Abd WITH and W/O Contras ton 09-30-2024 MRI Abd WITH and W/O Contrast [facility] Imaging Services [address] [place] [address] MRI Abd WITH and W/O Contrast MR#: [id number] Acct: [id number] Name: COLLEEN NAQVI Rep #: [id number] : 1975 M 49 From: Anna Ramos MD PCP: Carolyn Phelps PROCESS COORDINATOR-C Status: REG CLI Study: MRI Abd WITH and W/O Contrast Date of Exam: Exam# [id number] Ordering Dr: Carolyn Phelps [facility] PROCESS COORDINATOR- C PROCEDURE: MRI ABD WITH AND W/O CONTRAST, [...] 5. Additional description as above. Reading Location: [id number] CC: Carolyn [facility] PROCESS COORDINATOR-C Beam Product Management Intern: Signed Normal [facility] Abdomen/Pelvis without Conto n 09-10-2024 Abdomen/Pelvis without Cont [facility] Services [address] [place], [place] [address] Abdomen/Pelvis without Cont MR#: [id number] Acct: [id number] Name: COLLEEN NAQVI Rep #: [id number] : 1975 M 49 From: Scar Sexton DO PCP: Care Physician,No Primary Status: REG ER Study: Abdomen/Pelvis without Cont Date of Exam: 08/22 04/16 Exam# [id number] Ordering Dr: Brody Villa DO PROCEDURE: ABDOMEN/PELVIS [...] information about the adrenal lesions Reading Location[facility] - [place] CC: Dr. Brody Villa, DO; No Primary Care Physician Product Management Intern: Signed Normal [facility] Absolute lymphocyte countOrd ered By: Brody Villa on 09-10-2024 Lymphocytes Auto (Unsp spec) [#/Vol] 2.25 10*3/uL 0.83-4.51 [facility] Absolute neutrophil countOrd ered By: Brody Villa on 09-10-2024 Neutrophils (Bld) [#/Vol] 14.2 10*3/uL High 2.0-7.7 [facility] Anion gap in Serum or Plasma Ordered By: Brody Villa on 09-10-2024 Anion gap [Moles/Vol] 14 mmol/L 5-15 [facility] Automated lymphocyte count a s percentage of total leukocytesOrdered By: Brody Villa on 09-10-2024 Lymphocytes/100 WBC Auto (Unsp spec) 12.7 % Low 19-41 [facility] BUN/creatinine ratioOrdered By: Brody Villa on 09-10-2024 Urea nitrogen/Creatinine [Mass ratio] 18.2 mg/mg 10- [facility] Basic Metabolic Profile (BMP )on 09-10-2024 BUN/CRE 18.2 RATIO Normal - [facility] Comment on above: Performed By: #### L 100.0100, L500.2500 #### [facility] [address] [place], [address] Calcium [Mass/Vol] 9.8 mg/dL Normal 7.6-11.0 [facility] Comment on above: Performed By: #### L 100.0100, L500.2500 #### [facility] [address] [place], [address] Chloride [Moles/Vol] 99 mmol/L Normal 98-108 [facility] Comment on above: Performed By: #### L 100.0100, L500.2500 #### [facility] [address] [place], [address] CO2 [Moles/Vol] 24.0 mmol/L Normal 21.0-32.0 [facility] Comment on above: Performed By: #### L 100.0100, L500.2500 #### [facility] [address] [place], [address] Creatinine [Mass/Vol] 0.88 mg/dL Normal 0.70-1.20 [facility] Comment on above: Performed By: #### L 100.0100, L500.2500 #### [facility] [address] [place], [address] ECRCL 111.54 ml/min Normal 50-250 [facility] Comment on above: Performed By: #### L 100.0100, L500.2500 #### [facility] [address] [place], [address] GAP 14 Normal 5-15 [facility] Comment on above: Performed By: #### L 100.0100, L500.2500 #### [facility] [address] [place], [address] GFR/1.73 sq M.predicted among non-blacks MDRD (S/P/Bld) [Vol rate/Area] 106 mL/min/{1.73_m2} Normal >60 [facility] Comment on above: Result Comment: mL/m in/1.73m2 CKD-EPI Creatinine Equation (2020) Performed By: #### L 100.0100, L500.2500 #### [facility] [address] [place], [address] Glucose [Mass/Vol] 132 mg/dL High 70-99 [facility] Comment on above: Performed By: #### L 100.0100, L500.2500 #### [facility] [address] [place], [address] Potassium [Moles/Vol] 3.9 mmol/L Normal 3.3-5.1 [facility] Comment on above: Performed By: #### L 100.0100, L500.2500 #### [facility] [address] [place], [address] Sodium [Moles/Vol] 137 mmol/L Normal 133-145 [facility] Comment on above: Performed By: #### L 100.0100, L500.2500 #### [facility] [address] [place], [address] Urea nitrogen [Mass/Vol] 16 mg/dL Normal 4-19 [facility] Comment on above: Performed By: #### L 100.0100, L500.2500 #### [facility] [address] [place], [address] Basophil percentageOrdered B y: Brody Villa on 09-10-2024 Basophils/100 WBC (Bld) 0.3 % 0-1 [facility] Bilirubin Test strip Ql (U)O rdered By: Brody Villa on 09-10-2024 Bilirubin Ql (U) Negative Negative [facility] Bilirubin directOrdered By: Brody Villa on 09-10-2024 Bilirubin.direct [Mass/Vol] 0.21 mg/dL 0.00-0.30 [facility] Bilirubin, totalOrdered By: Brody Villa on 09-10-2024 Bilirubin [Mass/Vol] 0.75 mg/dL 0.00-1.30 [facility] CBC W/Diff, Automatedon 08-22 Absolute Lymph 2.25 X10 3/uL Normal 0.83-4.51 [facility] Comment on above: Performed By: #### L 100.0100, L500.2500 #### [facility] [address] [place], [address] Absolute Neut 14.2 X10 3/uL High 2.0-7.7 [facility] Comment on above: Performed By: #### L 100.0100, L500.2500 #### [facility] [address] [place], [address] Basophils/100 WBC (Bld) 0.3 % Normal 0-1 [facility] Comment on above: Performed By: #### L 100.0100, L500.2500 #### [facility] [address] [place], [address] Eosinophils/100 WBC (Bld) 0.0 % Normal 0-5 [facility] Comment on above: Performed By: #### L 100.0100, L500.2500 #### [facility] [address] [place], [address] Erythrocyte distribution width (RBC) [Ratio] 13.8 % Normal 11.6-14.6 [facility] Comment on above: Performed By: #### L 100.0100, L500.2500 #### [facility] [address] [place], [address] Hematocrit (Bld) [Volume fraction] 46.0 % Normal 40-54 [facility] Comment on above: Performed By: #### L 100.0100, L500.2500 #### [facility] [address] [place], [address] Hemoglobin (Bld) [Mass/Vol] 16.0 g/dL Normal 13.0-16.5 [facility] Comment on above: Performed By: #### L 100.0100, L500.2500 #### [facility] [address] [place], [address] IG% 0.700 Normal 0.0-0.9 [facility] Comment on above: Result Comment: IG% - Immature Granulocytes (promyelocytes, myelocytes and metamyelocytes) > 1% indicates that a LEFT SHIFT is Present. Performed By: #### L 100.0100, L500.2500 #### [facility] [address] [place], [address] Lymphocytes/100 WBC (Bld) 12.7 % Low 19-41 [facility] Comment on above: Performed By: #### L 100.0100, L500.2500 #### [facility] [address] [place], [address] MCH (RBC) [Entitic mass] 28.9 pg Normal 27.0-32.0 [facility] Comment on above: Performed By: #### L 100.0100, L500.2500 #### [facility] [address] [place], [address] MCHC (RBC) [Mass/Vol] 34.8 g/dL Normal 32-36 [facility] Comment on above: Performed By: #### L 100.0100, L500.2500 #### [facility] [address] [place], [address] MCV (RBC) [Entitic vol] 83.2 fL Normal 80-94 [facility] Comment on above: Performed By: #### L 100.0100, L500.2500 #### [facility] [address] [place], [address] Monocytes/100 WBC (Bld) 5.7 % Normal 0-10 [facility] Comment on above: Performed By: #### L 100.0100, L500.2500 #### [facility] [address] [place], [address] Neutrophils/100 WBC (Bld) 80.6 % High 47-70 [facility] Comment on above: Performed By: #### L 100.0100, L500.2500 #### [facility] [address] [place], [address] Nucleated RBC (Bld) [#/Vol] 0 10*3/uL Normal 0-5 [facility] Comment on above: Performed By: #### L 100.0100, L500.2500 #### [facility] [address] [place], [address] Platelet mean volume (Bld) [Entitic vol] 8.5 fL Normal 6.2-12.0 [facility] Comment on above: Performed By: #### L 100.0100, L500.2500 #### [facility] [address] [place], [address] Platelets (Bld) [#/Vol] 369 10*3/uL Normal 150-450 [facility] Comment on above: Performed By: #### L 100.0100, L500.2500 #### [facility] [address] [place], [address] RBC (Bld) [#/Vol] 5.53 10*6/uL Normal 4.6-6.2 [facility] Comment on above: Performed By: #### L 100.0100, L500.2500 #### [facility] [address] [place], [address] RDW SD 42.5 fl Normal 35.1-43.9 [facility] Comment on above: Performed By: #### L 100.0100, L500.2500 #### [facility] [address] [place], [address] WBC (Bld) [#/Vol] 17.7 10*3/uL High 4.4-11.0 [facility] Comment on above: Performed By: #### L 100.0100, L500.2500 #### [facility] [address] [place], [address] Carbon dioxide, total [Moles /volume] in Central venous bloodOrdered By: Brody Villa on 09-10-2024 CO2 [Moles/Vol] 24.0 mmol/L 21.0-32.0 [facility] Chloride assayOrdered By: Sergei Villa on 09-10-2024 Chloride [Moles/Vol] 99 mmol/L 98-108 [facility] Emergency Department Summary on 09-10-2024 Emergency Department Summary [facility] Medical Records Department [address] [place] [address] Emergency Department Summary 09/10/24 MR#: [id number] Acct: [id number] Name: COLLEEN NAQVI Rep #: [id number] : 1975 49 From: Brody Singh PCP: [...] obstructive process (more content not included)... Normal [facility] Eosinophil percentageOrdered By: Brody Villa on 09-10-2024 Eosinophils/100 WBC (Bld) 0.0 % 0-5 [facility] Erythrocyte distribution wid th ratioOrdered By: Brody Villa on 09-10-2024 Erythrocyte distribution width (RBC) [Ratio] 13.8 % 11.6-14.6 [facility] Erythrocyte distribution wid th standard deviationOrdered By: Brody Villa on 09-10-2024 Erythrocyte distribution width (RBC) [Ratio] 42.5 fl 35.1-43.9 [facility] Glomerular filtration rate ( GFR) estimation/1.73 sq m using serum, plasma, or whole bOrdered By: Brody Villa on 09-10-2024 GFR/1.73 sq M.predicted among non-blacks MDRD (S/P/Bld) [Vol rate/Area] 106 mL/min/{1.73_m2} >60 [facility] Comment on above: mL/min/1.73m2 CKD-EP I Creatinine Equation (2020) Hematocrit Auto (Bld) [Volum e fraction]Ordered By: Brody Villa on 09-10-2024 Hematocrit (Bld) [Volume fraction] 46.0 % 40-54 [facility] Hemoglobin measurementOrdere d By: Brody Villa on 09-10-2024 Hemoglobin (Bld) [Mass/Vol] 16.0 g/dL 13.0-16.5 [facility] Immature granulocytes/100 WB C Auto (Bld)Ordered By: Brody Villa on 09-10-2024 Immature granulocytes/100 WBC (Bld) 0.700 % 0.0-0.9 [facility] Comment on above: IG% - Immature Granu locytes (promyelocytes, myelocytes and metamyelocytes) > 1% indicates that a LEFT SHIFT is Present. Ketones Test strip Ql (U)Ord ered By: Brody Villa on 09-10-2024 Ketones Ql (U) Negative Negative [facility] - Chemistry and C hemistry - challengeOrdered By: Brody Villa on 09-10-2024 AST [Catalytic activity/Vol] 21 U/L <38 [facility] Lipaseon 09-10-2024 Lipase [Catalytic activity/Vol] 21 U/L Normal 13-75 [facility] Comment on above: Result Comment: [place] huizar note: LIPASE revised reference range effective 22. New Lipase methodology. Expected to produce lower values than the previous assay method. NEW Reference Range: 13 - 75 U/L Performed By: #### L 500.3400, L501.2450 #### [facility] [address] [place], [place], [id number] Lipase measurementOrdered By : Brody Villa on 09-10-2024 Lipase [Catalytic activity/Vol] 21 U/L 13-75 [facility] Comment on above: Please note:LIPASE r evised reference range effective 22. New Lipase methodology. Expected to produce lower values than the previous assay method. NEW Reference Range: 13 - 75 U/L Liver Profileon 09-10-2024 Albumin [Mass/Vol] 4.6 g/dL Normal 3.5-5.0 [facility] Comment on above: Performed By: #### L 500.3400, L501.2450 #### [facility] [address] [place], [address] ALK PHOS 80 U/L Normal 40-129 [facility] Comment on above: Performed By: #### L 500.3400, L501.2450 #### [facility] [address] [place], [address] ALT [Catalytic activity/Vol] 23 U/L Normal <=46 [facility] Comment on above: Performed By: #### L 500.3400, L501.2450 #### [facility] [address] [place], [address] AST [Catalytic activity/Vol] 21 U/L Normal <=37 [facility] Comment on above: Performed By: #### L 500.3400, L501.2450 #### [facility] [address] [place], [address] Bilirubin [Mass/Vol] 0.75 mg/dL Normal 0.00-1.30 [facility] Comment on above: Performed By: #### L 500.3400, L501.2450 #### [facility] [address] [place], [address] Bilirubin.direct [Mass/Vol] 0.21 mg/dL Normal 0.00-0.30 [facility] Comment on above: Performed By: #### L 500.3400, L501.2450 #### [facility] [address] [place], [address] Globulin (S) [Mass/Vol] 3.4 g/dL Normal 2.2-4.2 [facility] Comment on above: Performed By: #### L 500.3400, L501.2450 #### [facility] [address] [place], [address] T PROT 8.0 g/dL Normal 5.9-8.4 [facility] Comment on above: Performed By: #### L 500.3400, L501.2450 #### [facility] [address] [place], [address] MCV (mean corpuscular volume ) determinationOrdered By: Brody Villa on 09-10-2024 MCV (RBC) [Entitic vol] 83.2 fL 80-94 [facility] Mean corpuscular hemoglobin (MCH) determinationOrdered By: Brody Villa on 09-10-2024 MCH (RBC) [Entitic mass] 28.9 pg 27.0-32.0 [facility] Mean corpuscular hemoglobin concentration (MCHC) determinationOrdered By: Brody Villa on 09-10-2024 MCHC (RBC) [Mass/Vol] 34.8 g/dL 32-36 [facility] Mean platelet volume determi nationOrdered By: Brody Villa on 09-10-2024 Platelet mean volume (Bld) [Entitic vol] 8.5 fL 6.2-12.0 [facility] Microscopic analysis of urin e for red blood cells (RBC)Ordered By: Brody Villa on 09-10-2024 Microscopic analysis of urine for red blood cells (RBC) 0-5 SEEN /hpf 0-5 [facility] Monocyte percentageOrdered B y: Brody Villa on 09-10-2024 Monocytes/100 WBC (Bld) 5.7 % 0-10 [facility] Mucus LM Ql (Urine sed)Order ed By: Brody Villa on 09-10-2024 Mucus Ql (Urine sed) 0 SEEN /hpf [facility] Neutrophil percentageOrdered By: Brody Villa on 09-10-2024 Neutrophils/100 WBC (Bld) 80.6 % High 47-70 [facility] Nitrite Test strip Ql (U)Ord ered By: Brody Villa on 09-10-2024 Nitrite Ql (U) Negative Negative [facility] Nucleated red blood cell per centageOrdered By: Brody Villa on 09-10-2024 Nucleated RBC/100 WBC (Bld) [Ratio] 0 % 0-5 [facility] Platelet countOrdered By: Sergei Villa on 09-10-2024 Platelets (Bld) [#/Vol] 369 10*3/uL 150-450 [facility] Potassium measurement (mass/ volume)Ordered By: Brody Villa on 09-10-2024 Potassium (Unsp spec) [Mass/Vol] 3.9 mmol/L 3.3-5.1 [facility] Protein Test strip Ql (U)Ord ered By: Brody Villa on 09-10-2024 Protein Ql (U) 30 mg/dl High Negative [facility] RBC Auto (Bld) [#/Vol]Ordere d By: Brody Villa on 09-10-2024 RBC (Bld) [#/Vol] 5.53 10*6/uL 4.6-6.2 [facility] Serum creatinine measurement (mass/volume)Ordered By: Brody Villa on 09-10-2024 Creatinine [Mass/Vol] 0.88 mg/dL 0.70-1.20 [facility] Serum globulin measurementOr dered By: Brody Villa on 09-10-2024 Globulin (S) [Mass/Vol] 3.4 g/dL 2.2-4.2 [facility] Serum glucose measurement (m ass/volume)Ordered By: Brody Villa on 09-10-2024 Glucose [Mass/Vol] 132 mg/dL High 70-99 [facility] Serum or plasma alanine nagel otransferase (ALT) measurementOrdered By: Brody Villa on 09-10-2024 ALT [Catalytic activity/Vol] 23 U/L <47 [facility] Serum or plasma albumin fatoumata urement (mass/volume)Ordered By: Brody Villa on 09-10-2024 Albumin [Mass/Vol] 4.6 g/dL 3.5-5.0 [facility] Serum or plasma alkaline celine sphatase measurementOrdered By: Brody Villa on 09-10-2024 ALP [Catalytic activity/Vol] 80 U/L 40-129 [facility] Serum or plasma calcium fatoumata urement (mass/volume)Ordered By: Brody Villa on 09-10-2024 Calcium [Mass/Vol] 9.8 mg/dL 7.6-11.0 [facility] Serum or plasma urea nitroge n measurement (mass/volume)Ordered By: Brody Villa on 09-10-2024 Urea nitrogen [Mass/Vol] 16 mg/dL 4-19 [facility] Sodium levelOrdered By: Brody Villa on 09-10-2024 Sodium [Moles/Vol] 137 mmol/L 133-145 [facility] Squamous epithelial cells de tection in urine sediment by light microscopyOrdered By: Brody Villa on 09-10-2024 Epithelial cells.squamous LM Ql (Urine sed) 0 SEEN /hpf 0-5 [facility] Total proteinOrdered By: Ajit Villa on 09-10-2024 Protein [Mass/Vol] 8.0 g/dL 5.9-8.4 [facility] Urinalysis, Completeon 09-10 WBC 0 SEEN Normal 0-5 [facility] Comment on above: Order Comment: CLEAN CATCH Performed By: #### L 400.0001 #### [facility] [address] [place], [address] RBC 0-5 SEEN Normal 0-5 [facility] Comment on above: Order Comment: CLEAN CATCH Performed By: #### L 400.0001 #### [facility] [address] [place], [address] BACTERIA 0 SEEN Normal None Seen [facility] Comment on above: Order Comment: CLEAN CATCH Performed By: #### L 400.0001 #### [facility] [address] [place], [address] EPI,SQUAMOUS 0 SEEN Normal 0-5 [facility] Comment on above: Order Comment: CLEAN CATCH Performed By: #### L 400.0001 #### [facility] [address] [place], [address] Mucus Ql (Urine sed) 0 SEEN Normal [facility] Comment on above: Order Comment: CLEAN CATCH Performed By: #### L 400.0001 #### [facility] [address] [place], [address] Urine clarityOrdered By: Ajit Villa on 09-10-2024 Clarity (U) Clear Clear [facility] Urine color determinationOrd ered By: Brody Villa on 09-10-2024 Color (U) Yellow Yellow [facility] Urine glucose detectionOrder ed By: Brody Villa on 09-10-2024 Glucose Ql (U) Normal mg/dl Normal [facility] Urine leukocyte esterase det ection by dipstickOrdered By: Brody Villa on 09-10-2024 Leukocyte esterase Test strip Ql (U) Negative Negative [facility] Urine pHOrdered By: Brody Villa on 09-10-2024 pH (U) 6.0 [pH] 5.0 - 8.0 [facility] Urine sediment bacteria coun t by microscopy (number/high power field)Ordered By: Brody Villa on 09-10-2024 Bacteria LM.HPF (Urine sed) [#/Area] 0 /[HPF] None Seen [facility] Urine specific gravity measu rementOrdered By: Brody Villa on 09-10-2024 Specific gravity (U) [Rel density] 1.020 1.002-1.030 [facility] Urine urobilinogen measureme ntOrdered By: Brody Villa on 09-10-2024 Urobilinogen Ql (U) Normal mg/dl Normal [facility] White blood cell (WBC) count Ordered By: Brody Villa on 09-10-2024 WBC (Bld) [#/Vol] 17.7 10*3/uL High 4.4-11.0 [facility] White blood cell countOrdere d By: Brody Villa on 09-10-2024 White blood cell count 0 SEEN /hpf 0-5 [facility] CNTHERAPYon 11-07-2020 CNTHERAPY OT/PT/Speech Visit (PTWS) -------- COLLEEN NAQVI ([id number]) 1975 M Date Time Provider Department 11/07/20 8:30 AM MARY ANN PEREA PTWS Date Time Provider Department Center 11/07/2020 8:30 AM [id number] ANN PEREA PTWS [facility] Reason for Visit: PT Discharge [752] [...] as needed for Muscle Spasm. -------- Normal [facility] CNOVon 10-18-2020 CNOV Office Visit (ENRIQUEPWS ) -------- COLLEEN NAQVI ([id number]) 1975 M Date Time Provider Department 10/18/20 4:00 PM ANNA CARDENAS During your visit today, we recorded the following information about you: Pulse Respiration Blood pressure Weight 90/minute 16/minute 150/98 87.9 kg Anna Cardenas MD 10/18/2020 4:21 PM Signed Chief Complaint Patient presents with: Follow Up: Urgent Care HPI Colleen Naqvi is a 45 year old male who presents here today for UC follow up. Pt of Dr. Marrero who [...] that time. Pt states he works at [employer]. States he works 3rd shift, only gets [...] (<130/80) Ne (more content not included)... Normal [facility] CNOVon 10-03-2020 CNOV Office Visit (WSTR ) -------- COLLEEN NAQVI ([id number]) 1975 M Date Time Provider Department 10/03/20 7:15 AM JORGE LUIS LOPEZ [facility] During your visit today, we recorded the [...] working 3rd shift is hard on him ([place], lifts a lot) Relieving: nothing Pain relievers: [...] of pr (more content not included)... Normal [facility] Vital Signs Date Time Vital Sign Value Performing Clinician Terrie mckeon 09-10-2024 16:25-0400 Body temperature 98.3 [degF] Dr. Brody Villa DO Work Phone: [facility] 09-10-2024 16:25-0400 Diastolic blood pressure 89 mm[Hg] Dr. Brody Villa DO Work Phone: [facility] 09-10-2024 16:25-0400 Heart rate 79 /min Dr. Bordy Villa DO Work Phone: [facility] 09-10-2024 16:25-0400 Respiratory rate 17 /min Dr. Brody Villa DO Work Phone: [facility] 09-10-2024 16:25-0400 SaO2% (BldA) [Mass fraction] 100 % Dr. Brody Villa DO Work Phone: [facility] 09-10-2024 16:25-0400 Systolic blood pressure 136 mm[Hg] Dr. Brody Villa DO Work Phone: [facility] 09-10-2024 12:08-0400 Body height 175.[address] Brody Villa DO Work Phone: [facility] 09-10-2024 12:08-0400 Body mass index (BMI) [Ratio] 28.6 kg/m2 Dr. Brody Singh Work Phone: [facility] 09-10-2024 12:08-0400 Body weight 88.[address] Brody Singh Work Phone: [facility] Encounters Encounter Date Encounter Type Care Provider Facility Start: 11-10-2024 ambulatory Jacquelyn Hightower Facility :[facility] Start: 11-05-2024 End: 11-05-[address] Brody Singh Work Phone: -Ultrasound [facility] Start: 11-05-2024 End: 11-05-2024 Patient encounter procedure Jacquelyn Hightower PROCESS COORDINATOR-C -Ultrasound [facility] Work Phone: Start: 11-05-2024 End: 11-05-2024 ambulatory Zebulun Beam VSC Facility:[facility] Start: 10-07-2024 End: 10-07-[address] Brody Singh Work Phone: -Laboratory Start: 10-07-2024 End: 10-07-2024 Patient encounter procedure Zebulun Beam PROCESS COORDINATOR-C -Laboratory Work Phone: Start: 10-07-2024 End: 10-07-2024 ambulatory Zebulun Beam VSC Facility:[facility] Start: 09-30-2024 End: 09-30-[address] Brody Singh Work Phone: -MRI - [facility] Start: 09-30-2024 End: 09-30-2024 Patient encounter procedure Zebulun Beam PROCESS COORDINATOR-C -[facility] - [facility] Work Phone: Start: 09-30-2024 End: 09-30-2024 ambulatory Zebulun Beam VSC Facility:[facility] Start: 09-22-2024 End: 09-22-2024 Transcribe Orders Zebulun Beam PROCESS COORDINATOR Other Phone: Referring Physician Comment on above: Adrenal mass (HCC) ( Primary Dx) Start: 09-10-2024 End: 09-10-2024 ambulatory Willi Hawley RN NURSE GROUP MANAGER Start: 09-10-2024 End: 09-10-2024 Patient encounter procedure Willi Hawley RN NURSE GROUP MANAGER Comment on above: Referral Request Start: 09-10-2024 End: 09-10-2024 Emergency department patient visit Dr. Brody Villa DO Work Phone: -Emergency Department Work Phone: Procedures Date Procedure Procedure Detail Performing Clinician Start: 11-05-[address] Brody Singh Work Phone: Start: 10-07-2024 Urnls dip stick/tabl et reagent auto microscopy Dr. Brody Villa DO Work Phone: Start: 09-30-2024 MRI of abdomen with contrast Dr. Brody Singh Work Phone: Start: 09-10-2024 Urnls dip stick/tabl et reagent auto microscopy Dr. Brody Villa DO Work Phone: Start: 09-10-[address] Brody Singh Work Phone: Start: 09-10-2024 CT of abdomen and pe lvis without contrast Dr. Brody Villa DO Work Phone: Start: 11-19-2016 Lipid 1996 panel - S alirio or Plasma Willi Hawley RN Plan of Treatment Date Care Activity Detail Author Start: 11-21-2024 [facility] Start: 09-10-2024 [facility] Start: 11-22-2023 Covid-19 Vaccine ( season) Covid-19 Vaccine ( season) [facility] Start: 11-19-2021 Lipid panel Lipid Screening [facility] Start: 2020 Diabetes Screening Diabetes Screenin g [facility] Start: 2020 Screening for malign ant neoplasm of colon [facility] Start: 1994 Hepatitis B Vaccine (1 of 3 - 19+ 3-dose series) Hepatitis B Vaccine (1 of 3 - 19+ 3-dose series) [facility] Start: 1994 Urine microalbumin profile DTaP,Tdap,Td Vaccine (1 - Tdap) [facility] Start: 1993 Anxiety Screening Anxiety Screening [facility] Start: 1993 Depression Screening Depression Scre ening [facility] Start: 1993 Hepatitis C screening Hepatitis C Sc reening [facility] Start: 1993 HIV screening HIV Screening [facility] Patient Education [facility] Work Phone: Patient referral [facility] Work Phone: Immunizations Immunization Date Immunization Notes Care Provider Bebo morgan 02-22-2013 influenza virus vacc ine, unspecified formulation Willi Hawley RN [facility] Payers Date Payer Category Payer Self-pay [id number] 2024 Unknown [id number] 2024 Private Health Insurance REFEREN BASED PAYER [id number] 2014 Unknown [id number] Private Health Insurance [id number] Unknown [id number] Unknown [id number] Unknown [id number] Unknown [id number] Unknown [id number] Social History Date Type Detail Facility Start: 10-03-2020 End: 09-10-2024 Tobacco smoking status TXIS Smokes tobacco daily (finding) [facility] Start: 1975 Sex Assigned At Male [facility] History of tobacco use Cigarette Smoker [facility] Start: 10-03-2020 End: 10-18-2020 Cigarettes smoked current (pack per day) - Reported 1.5 [facility] Start: 10-03-2020 Tobacco use and exposure Smokeless tobacco non-user [facility] Start: 10-18-2020 Alcoholic beverage intake Current drinker of alcohol (finding) [facility] Start: 10-03-2020 End: 10-18-2020 Tobacco use panel [facility] National Score (1-10 0), lower number is lower risk Not on file [facility] Start: 07-28-2014 [facility] Comment [facility] Start: 1975 Sex assigned at Not on file [facility] Functional Status Date Assessment Result Facility 07-28-2014 Are you deaf, or do you have serious difficulty hearing No 07/28/2014 9:06 AM Marissa Castillo LPN No [facility] 07-28-2014 Are you blind, or do you have serious difficulty seeing, even when wearing glasses No 07/28/2014 9:06 AM Marissa Castillo LPN No [facility] 07-28-2014 Do you have serious difficulty walking or climbing stairs No 07/28/2014 9:06 AM EDT Marissa Kramer LPN No [facility] 07-28-2014 Do you have difficul ty dressing or bathing No 07/28/2014 9:06 AM EDT Marissa Kramer LPN No [facility] 07-28-2014 Because of a physica l, mental, or emotional condition, do you have difficulty doing errands alone such as visiting a physician's office or shopping No 07/28/2014 9:06 AM EDT Marissa Kramer LPN No [facility] Mental Status Date Assessment Result Facility 07-28-2014 Because of a physica l, mental, or emotional condition, do you have serious difficulty concentrating, remembering, or making decisions No 07/28/2014 9:06 AM EDT Marissa Kramer LPN No [facility] Clinical Notes 10-03-2020 to 11-07-2024 Telephone Encounter - Willi Hawley RN - 09/10/2024 3:23 PM EDTTelephone Encounter - Willi Hawley RN - 09/10/2024 3:23 PM EDT Note Date & Type Note Facility 11-07-2024 Radiology Diagnostic study note [facility] Imaging Services [address] [place] [address] [id number] Abdomen Limited MR#: [id number] Acct: [id number] Name: COLLEEN NAQVI Rep #: [id number] : 1975 M 49 From: Francy Erickson MD PCP: Carolyn Phelps Willi PROCESS COORDINATOR-C Status: REG CLI Study:Abdomen Limited Date of Exam: 10/21 09/14 Exam# [id number] Ordering Dr: Jacquelyn Hightower PROCESS COORDINATORTomasz PROCEDURE: ABDOMEN LIMITED 11/05/2024 REASON FOR EXAM: GALLBLADDER DISEASE TECHNIQUE: ABDOMEN LIMITED COMPARISON: 09/30/2024 MRI was reviewed FINDINGS: Liver is mildly enlarged and measures 17.2 cm. It shows normal echogenicity. On the current study no definite focal lesions. Normal bile ducts. Normal color flow. Portal vein is patent with hepatopetal flow. Gallbladder measures 8.1 cm. No definite stones. Negative Martini's sign. No pericholecystic fluid. No obvious wall thickening. Wall measures 2 mm. CBD measures 3 mm. The pancreas is heterogenous. No definite lesions. Right kidney measures 11.3 x 5.9 x 5.4 cm. Cortex measures 1.4 cm. No hydronephrosis. No stones. No mass. 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 No obvious abnormalities on the current study. Further evaluation is advised asclinically warranted Reading [facility] CC: DEION Hightower; [facility] DEION Rubi Product Management Intern: Signed [facility] 09-10-2024 Telephone encounter Note Reason for call: Caregiver (Anabell, secretary to the vice president at [employer]) calling with request to speak with on-call provider for Dr. Marrero. Paging request related to new adrenal mass found for patient during ER visit. Caregiver states that ER attending requested that physician be paged to ensure follow-up care following hospital discharge. Patient was last seen by Dr. Marrero in 2020, transferred to [facility] by automatic drill operator due to no longer being an active patient. Outcome: Advised caregiver that on-call cannot be paged due to patient no longer being established with this provider. Spoke with Dr. Mclean at [facility] to confirm details of patient's follow-up needs. [...] have any questions, you can call Nurse cloud automation tester back. [facility] 09-10-2024 Miscellaneous Notes Reason for call: Caregiver (Anabell, secretary to the vice president at [facility]) calling with request to speak with on-call provider for Dr. Marrero. Paging request related to new adrenal mass found for patient during ER visit. Caregiver states that ER attending requested that physician be paged to ensure follow-up care following hospital discharge. Patient was last seen by Dr. Marrero in 2020, transferred to [facility] by automatic drill operator due to no longer being an active patient. Outcome: Advised caregiver that on-call cannot be paged due to patient no longer being established with this provider. Spoke with Dr. Mclean at [facility] to confirm details of patient's follow-up needs. Spoke with patient, conferenced to [facility] for PCP scheduling. Caregiver denies any new or worsening symptoms of which a provider is not aware:Yes. GO TO THE EMERGENCY ROOM OR CALL 911 IF: * You develop any new symptoms * Your condition worsens * You are concerned or anxious about your condition for any other reason. If you have any questions, you can call Nurse cloud automation tester back. documented in this encounter [facility] 09-10-2024 Radiology Diagnostic study note [facility] Imaging Services [address] [place] [address] Abdomen/Pelvis without Cont MR#: [id number] Acct: [id number] Name: COLLEEN NAQVI Rep #: [id number] : 1975 M 49 From: Pet er Peer DO PCP: Care Physician,No Primary Status: REG ER Study:Abdomen/Pelvis without Cont Date of Exa m: 09/10/24 Exam# [id number] Ordering Dr: Brody Villa DO PROCEDURE: ABDOMEN/PELVIS [...] information about the adrenal lesions Reading [facility] CC: Dr. Brody Villa, DO; No Primary Care Physician ~ Product Management Intern: Signed [facility] 11-09-2020 Note Patient Outreach (FA MPWS) COLLEEN NAQVI ([id number]) 1975 M Date Time Provider Department 11/09/20 [...] Gap or Scheduling/Wellness visits Payer: Payor: [facility] / Plan: THP / Product Type: PPO [...] future healthcare decisions with a power of ip attorney, living will, or advance directives? Yes. [...] Status:Closed by JOSEFINA CONNER MA on 11/09/20 [facility] 11-09-2020 Note HNO ID: [id number] Author: Josefina Conner Ma Service: ? Author [...] Care Gap or Scheduling/Wellness visits Payer: Payor: [facility] / Plan: THP / Product Type: PPO [...] future healthcare decisions with a power of ip attorney, living will, or advance directives? Yes. Have you shared those records with your doctor? Yes Referrals: N/A Message Sent to Practice: NO Navigation Signature: Josefina Conner Ma November 09, 2020 10:38 AM [facility] 11-07-2020 Note HNO ID: [id number] Author: Mary Ann Perea, PT Service: ? Author Type: Physical Therapist Type: Progress Notes Filed: 01/28/2021 1:36 PM Note Text: 01/28/2021 [facility] PHYSICAL THERAPY DISCONTINUANCE [...] or scheduled additional follow-up appointments. 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 Pt. describes continuous reaching and overhead movements. [...] Pain is Wo (more content not included)... [facility] 10-18-2020 Note HNO ID: [id number] Author: Anna Cardenas MD Service: ? Author Type: Physician Type: Progress Notes Filed: 10/18/2020 4:21 PM Note Text: Chief Complaint Patient presents with: Follow Up: Urgent Care HPI Colleen Naqvi is a 45 year old male who presents here today for UC follow up. Pt of Dr. Marrero who [...] that time. Pt states he works at [employer]. States he works 3rd shift, only gets [...] on 11/21/2020 LIPID (more content not included)... [facility] 10-03-2020 Note HNO ID: [id number] Author: Jorge Luis Lopez MD Service: ? [...] 3rd shift is hard on him ([employer], lifts a lot) Relieving: nothing Pain relievers: [...] primary care dyad. Jorge Luis Lopez MD [facility] Evaluation note No assessment information availa ble [facility] Work Phone: Evaluation note Diagnosis Mixed hyperlipidemia- Primary Hypertension, essential Unspecified essential hypertension GERD without esophagitis Esophageal reflux Chronic bilateral low back pain, with sciatica presence unspecified Smoking greater than 30 pack years Tobacco use disorder Current use of proton pump inhibitor Encounter for long-term (current) use of other medications Adrenal mass (HCC)- Primary Unspecified disorder of adrenal glands documented in this encounter [facility] Discharge instructions Additional Instructions Your workup negative for kidney stones however notes a 4.4 cm left adrenal mass. This likely explaining your pain. Attempted to reach out to [facility], unfortunately currently your insurance is not accepted through them. Please call we will start from clinic on Thursday for outpatient follow-up and further testing as needed. Take pain medicines as needed.[facility] Work Phone: Reason for referral (narrative)No reason for referral [facility] Work Phone: Summary Purpose Family History No Family History Records FoundNo Family History Records Found Advance Directives No Advanced Directives Records Found Advance Directive Response Recorded Date/ Time Do you have a Healthcare Power of Microfilm Camera Operator? No September 10, 2024 12:27pm Advance Directives No January 03, 2016 1:39pm Chief Complaint and Reason for Visit Chief Complaint Admit Date FLANK September 10, 2024 12:0 8pm Chief Complaint Admit Date FLANK September 10, 2024 12:0 8pm NEOPLASM OF ADRENAL GLAND September 30 7:53am Chief Complaint Admit Date FLANK September 10, 2024 12:0 8pm NEOPLASM OF ADRENAL GLAND September 30 7:53am OTHER SPECIFIED DISEASES OF GALLBLADDER November 05, 2024 10:22am Additional Source Comments (unrecognized sect ion and content) No Status Records FoundNo Status Records Found INFORMATION SOURCE (unrecogn ized section and content) DATE CREATED AUTHOR 05/03/2021 [facility] DATE CREATED AUTHOR AUTHOR'S ORGANIZ ATION 11/12/2024 [facility] Care Teams (unrecognized sec tion and content) Team Status: Active Member Role Status Dates No Primary Care Physician Primary Care Provider Active Team Status: Inactive Member Role Status Dates Dr. Brody Villa DO Emergency Provider Active Start : September 10, 2024 End: September 10, 2024 No Primary Care Physician Primary Care Provider Active Start: September 10, 2024 End: September 10, 2024 Net Maker Relationship Specialty Start Date End Date Carolyn Phelps NP [address] [place] [address] Family Medicine 09/22/24 Team Status: Active Member Role/Relationship Status Dates Carolyn Beam VSC, PROCESS COORDINATOR-C Primary Care Provider Active Team Status: Inactive Member Role/Relationship Status Dates Dr. Brody Villa DO Attending Provider Active Start : September 10, 2024 End: September 10, 2024 Dr. Brody Villa DO Emergency Provider Active Start : September 10, 2024 End: September 10, 2024 No Primary Care Physician Primary Care Provider Active Start: September 10, 2024 End: September 10, 2024 Team Status: Inactive Member Role/Relationship Status Dates Truongburajeev Beam VSC, PROCESS COORDINATOR-C Primary Care Provider Active Start: September 30, 2024 End: September 30, 2024 Zebulun Beam VSC, PROCESS COORDINATOR-C Attending Provider Active Start: September 30, 2024 End: September 30, 2024 Zebulun Beam VSC, PROCESS COORDINATOR-C Referring Provider Active Start: September 30, 2024 End: September 30, 2024 Team Status: Inactive Member Role/Relationship Status Dates Carolyn Phelps VSC, PROCESS COORDINATOR-C Primary Care Provider Active Start: October 07, 2024 End: October 07, 2024 Carolyn Phelps VSC, PROCESS COORDINATOR-C Attending Provider Active Start: October 07, 2024 End: October 07, 2024 Team Status: Inactive Member Role/Relationship Status Dates Carolyn Phelps VSC, PROCESS COORDINATOR-C Primary Care Provider Active Start: November 05, 2024 End: November 05, 2024 Jacquelyn Hightower PROCESS COORDINATOR-C Attending Provider Active Start: November 05, 2024 End: November 05, 2024 Jacquelyn Hightower PROCESS COORDINATOR-C Referring Provider Active Start: November 05, 2024 End: November 05, 2024 Goals (unrecognized section and content) Goals [...] or prosecute any alcohol or drug abuse patient.[facility] the event this information is protected by the Federal Confidentiality of Alcohol and Drug Abuse Patient Records regulations: The Federal rules restrict any use of the information to criminally investigate or prosecute any alcohol or drug abuse patient.[facility] Reason for Visit (unrecogniz ed section and [...] BE BASED ON THE PRIMARY CLINICAL RECORDS. [facility]. provides no warranty or guarantee of the accuracy or completeness of information in this document.
--- NOTE | 2025-02-17 14:26 | US_ITS ---
PROCEDURE: THYROID 02/17/2025 REASON FOR EXAM: NODULE TECHNIQUE: Procedure Code: USTHY Modality: US Procedure: THYROID COMPARISON: None FINDINGS: Right thyroid lobe size: 5.9 x 2.2 x 1.9 cm Left thyroid lobe size: 5.3 x 2.0 x 2.0 cm Isthmus: 3 cm There are no solid nodules with an average diameter of greater than 5 mm. US/Thyroid IMPRESSION: The thyroid gland is enlarged and predominantly homogeneous with no significant nodules. RECOMMENDATION: Based on most suspicious nodule. Nodule size = largest diameter Only evaluate nodule if =>5 mm. Growth > 20% in 2 dimensions = worsening. Follow up to 4 nodules. Recommend biopsy for no more than 2 nodules. Reading Location: [id number]
== END | disposition home or self-care (01) ==
LOC: US 14:14
PROVIDERS: PCP Family Medicine; Referring Provider Family Medicine; Visit Provider Family Medicine
DX: E04.1 Nontoxic single thyroid nodule (principal)
CPT/HCPCS: 76536